=== PATIENT | male | born 1935 | race Caucasian/White ===

== ENCOUNTER 2017-12-30 15:09 | Inpatient (IN) | payer MEDICARE, OTHER ==
[2017-12-30] MEDS ORDERED: ASPIRIN 81 MG TABLET, CHEWABLE PO ONE ×2 (15:16→16:48)
--- NOTE | 2017-12-30 15:32 | ER Document Report ---
ED General - General Mode of Arrival: Medic Information source: Patient TRAVEL OUTSIDE OF THE [place] IN LAST 30 DAYS: No <RANDELL CHICAS - Last Filed: 12/30/17 23:29> <KEISHABRITTNEY Chen - Last Filed: 12/30/17 23:39> - General Stated Complaint: KNEE PAIN Time Seen by Provider: 12/30/17 15:24 Notes: Patient is an 82-year-old male with history of CHF, COPD, diabetes, and A. fib presents to the emergency department via EMS complaining of bilateral leg swelling onset this morning. Per EMS patient woke up this morning and had increased pain to his knees. Patient's associated symptoms include weakness dizziness and dyspnea. Patient also states that he has been falling a lot lately due to dizziness further stating he would always brace himself with his arms. Patient denies any chest pain, head injury or recent trauma. (RANDELL CHICAS) - Related Data Allergies/Adverse Reactions: rofecoxib [From Vioxx] Allergy (Severe, Verified 12/19/15 15:35) "put me in the hospital" Influenza Virus Vaccines [Influenza Virus Vaccine] Allergy (Unknown, Verified 11:07) lisinopril [Lisinopril] Adverse Reaction (Intermediate, Verified 12/19/15 15:35) muscle weakness simvastatin [From Zocor] Adverse Reaction (Intermediate, Verified 12/19/15 15:35 ) muscle weakness Past Medical History - General Information source: Patient - Social History Smoking Status: Unknown if Ever Smoked Family History: Reviewed & Not Pertinent - Past Medical History Cardiac Medical History: Reports: Hx Atrial Fibrillation - states chronic intermittent "all my life", denies anti-coag therapy, Hx Heart Attack - reports X 2 ??, in [place] 1959's/1969's, Hx Hypertension - meds x 6 years Pulmonary Medical History: Reports: Hx COPD, Hx Pneumonia - hospitalized as child, Hx Tuberculosis - +PPD, denies Rx, s, CXR shows previous granulomatous disease Renal/ Medical History: Reports: Hx Benign Prostatic Hyperplasia - nocturia x 2/night, urgency, "dribbling" GI Medical History: Reports: Hx Gastroesophageal Reflux Disease - meds x 25 years, Hx Ulcer - approx 25 years Musculoskeltal Medical History: Reports Hx Arthritis Psychiatric Medical History: Reports: Hx Depression - meds x 15 years - Immunizations Hx Pneumococcal Vaccination: 11/03/10 <JUAN FRANCISCORANDELL - Last Filed: 12/30/17 23:29> Review of Systems - Review of Systems Constitutional: No symptoms reported EENT: No symptoms reported Cardiovascular: See HPI, Dizziness Respiratory: No symptoms reported Gastrointestinal: No symptoms reported Genitourinary: No symptoms reported Male Genitourinary: No symptoms reported Musculoskeletal: See HPI Skin: No symptoms reported Hematologic/Lymphatic: No symptoms reported Neurological/Psychological: See HPI, Weakness -: Yes All other systems reviewed and negative <JUAN FRANCISCOLIUNATHAN - Last Filed: 12/30/17 23:29> Physical Exam <RANDELL CHICAS - Last Filed: 12/30/17 23:29> <KEISHABRITTNEY Gustavo - Last Filed: 12/30/17 23:39> - Vital signs Vitals: Pulse Ox 90 L 12/30/17 15:16 - Notes Notes: GENERAL: Alert, interacts well. No acute distress. HEAD: Normocephalic, atraumatic. EYES: Pupils equal, round, and reactive to light. Extraocular movements intact. ENT: Oral mucosa moist, tongue midline. NECK: Full range of motion. Supple. Trachea midline. LUNGS: Clear to auscultation bilaterally, no wheezes, rales, or rhonchi. No respiratory distress. HEART: Regular rate and rhythm. No murmurs, gallops, or rubs. ABDOMEN: Soft, non-tender. Non-distended. Bowel sounds present in all 4 quadrants. Old midline scar. EXTREMITIES: FROM BUE. Passive ROM BLE, with no pain. 2+ pitting edema BLE up to knees. NEUROLOGICAL: Alert and oriented x3. Normal speech. PSYCH: Normal affect, normal mood. SKIN: Warm, dry, normal turgor. Well healing abrasion on left lower extremity. Multiple SubQ skin tears on the proximal aspect of the left elbow and upper arm. Old skin tear located on the proximal aspect of the RUE. No signs of infection. No bruising on chest or abdomen. (RANDELL CHICAS) Course - Laboratory Result Diagrams: 12/30/17 15:41 12/30/17 15:41 - Consults Dr. Mckeon Time consulted: 17:18 - Dr. Mckeon accepts patient to Telemetry. <RANDELL CHICAS - Last Filed: 12/30/17 23:29> - Laboratory Result Diagrams: 12/30/17 15:41 12/30/17 15:41 <BRITTNEY VALDES - Last Filed: 12/30/17 23:39> - Vital Signs Vital signs: Temp Pulse Resp BP Pulse Ox 98.4 F 92 20 124/82 96 12/30/17 22:10 12/30/17 22:10 12/30/17 22:10 12/30/17 22:10 12/30/17 22:10 - Laboratory Laboratory results interpreted by me: 12/30/17 12/30/17 12/30/17 15:41 15:41 15:41 RBC 6.06 H Hgb 13.1 L MCV 72 L MCH 21.5 L MCHC 29.9 L RDW 31.5 H Plt Count 117 L Eosinophils % 8.9 H Carbon Dioxide 32 H Glucose 137 H Calcium 8.3 L Magnesium 1.1 L* Direct Bilirubin 0.6 H NT-Pro-B Natriuret Pep 13205 H Total Protein 5.9 L Discharge - Discharge Admitting Provider: Dr. Mckeon Unit Admitted: Telemetry <RANDELL CHICAS - Last Filed: 12/30/17 23:29> <BRITTNEY VALDES - Last Filed: 12/30/17 23:39> - Discharge Clinical Impression: Pitting edema, Weakness CHF (congestive heart failure) Qualifiers: Heart failure type: unspecified Heart failure chronicity: unspecified Qualified Code(s): I50.9 - Heart failure, unspecified Condition: Stable Disposition: ADMITTED INPATIENT Scribe Attestation: 12/30/17 23:39 I personally performed the services described documentation, reviewed and edited the documentation which was dictated to describe my presence, and it accurately records my words and actions. (BRITTNEY VALDES) Scribe Documentation - Scribe Written by Russ:: Russ Fatima, 12/30/2017 15:34 acting as scribe for :: Keisha <RANDELL CHICAS - Last Filed: 12/30/17 23:29>
--- NOTE | 2017-12-30 16:14 | RADIOLOGY REPORT (SQ) ---
EXAM DESCRIPTION: CHEST SINGLE VIEW COMPLETED DATE/TIME: 12/30/2017 3:54 pm REASON FOR STUDY: edema COMPARISON: None. EXAM PARAMETERS: NUMBER OF VIEWS: One view. TECHNIQUE: Single frontal radiographic view of the chest acquired. RADIATION DOSE: NA LIMITATIONS: None. FINDINGS: LUNGS AND PLEURA: Ill-defined opacity right base. Differential includes atelectasis, infi ltrate or possibly chronic change that cannot be excluded without previous chest x-rays. Few marking s left lower lung zone -probably vascular. MEDIASTINUM AND HILAR STRUCTURES: No masses. Contour normal. HEART AND VASCULAR STRUCTURES: Mild to moderate cardiomegaly. BONES: No acute findings. HARDWARE: Sternotomy wires. OTHER: No other significant finding. IMPRESSION: Increasing density at the right base. See above differential. No overt congestive hear t failure TECHNICAL DOCUMENTATION: JOB ID: [id number] [employer]- All Rights Reserved Reading location - IP/workstation name: [email or web address]
[2017-12-30 16:26] LABS: ALANINE AMINOTRANSFERASE 24 U/L (21-72); ALBUMIN 3.6 g/dL (3.5-5.0); ALKALINE PHOSPHATASE 47 U/L (38-126); ANION GAP 9 (5-19); ASPARTATE AMINO TRANSFERASE 20 U/L (17-59); BILIRUBIN,DIRECT 0.6 mg/dL (0.0-0.4); BILIRUBIN,TOTAL 0.8 mg/dL (0.2-1.3); BLOOD UREA NITROGEN 20 mg/dL (7-20); CALCIUM 8.3 mg/dL (8.4-10.2); CARBON DIOXIDE 32 mmol/L (22-30); CHLORIDE 103 mmol/L (98-107); GLUCOSE 137 mg/dL (75-110); POTASSIUM 4.3 mmol/L (3.6-5.0); SODIUM 143.5 mmol/L (137-145); TOTAL PROTEIN 5.9 g/dL (6.3-8.2)
[2017-12-30 16:35] LABS: ABSOLUTE BASOPHILS # (AUTO) 0.1 10^3/uL (0.0-0.2); ABSOLUTE EOSINOPHILS # (AUTO) 0.5 10^3/uL (0.0-0.6); ABSOLUTE MONOCYTES (AUTO) 0.4 10^3/uL (0.1-1.4); ABSOLUTE NEUT (AUTO) 3.1 10^3/uL (1.7-8.2); BASOPHILS % (AUTO) 1.2 % (0-2); EOSINOPHILS % (AUTO) 8.9 % (0-6); HEMATOCRIT 43.7 % (37.9-51.0); HEMOGLOBIN 13.1 g/dL (13.5-17.0); LYMPHOCYTES % (AUTO) 20.3 % (13-45); MEAN CORPUSCULAR HEMOGLOBIN 21.5 pg (27.0-33.4); MEAN CORPUSCULAR HGB CONC 29.9 g/dL (32.0-36.0); MEAN CORPUSCULAR VOLUME 72 fl (80-97); MONOCYTES % (AUTO) 7.6 % (3-13); PLATELET COUNT 117 10^3/uL (150-450); RED BLOOD COUNT 6.06 10^6/uL (4.35-5.55); RED CELL DISTRIBUTION WIDTH 31.5 % (11.5-14.0); TOTAL CELLS COUNTED % (AUTO) 100 %
[2017-12-30 16:44] LABS: TROPONIN I 0.053 ng/mL
[2017-12-30 16:45] LABS: PLATELET COMMENT DECREASED; PLATELET LARGE PRESENT
[2017-12-30 16:48] LABS: ANISOCYTOSIS 2+; OVALOCYTES 2+; TARGET CELLS SLIGHT; TEAR DROP CELLS SLIGHT
[2017-12-30 16:49] LABS: HYPOCHROMASIA SLIGHT
[2017-12-30] MEDS ORDERED: FUROSEMIDE INJ/PF 40 MG/4 ML SDV IV ONE (17:22)
--- NOTE | 2017-12-30 17:35 | RADIOLOGY REPORT (SQ) ---
EXAM DESCRIPTION: CT HEAD WITHOUT COMPLETED DATE/TIME: 12/30/2017 5:25 pm REASON FOR STUDY: frequent falls COMPARISON: None. TECHNIQUE: Axial images acquired through the brain without intravenous contrast. Images reviewed wi th bone, brain and subdural windows. Images stored on PACS. All CT scanners at this facility use dose modulation, iterative reconstruction, and/or weight based d osing when appropriate to reduce radiation dose to as low as reasonably achievable (ALARA). [facility]: Dose Right [facility]: CareDose [facility]: Dose Right [facility]: Teradose 4D [facility]: [employer] RADIATION DOSE: CT Rad equipment meets quality standard of care and radiation dose reduction techniq ues were employed. CTDIvol: 64.6 mGy. DLP: 1809 mGy-cm. mGy. LIMITATIONS: None. FINDINGS: VENTRICLES: Prominent ventricles secondary to involutional atrophy. CEREBRUM: No masses. No hemorrhage. No midline shift. No evidence for acute infarction. Normal gra y/white matter differentiation. No areas of low density in the white matter. CEREBELLUM: No masses. No hemorrhage. No alteration of density. No evidence for acute infarction. EXTRAAXIAL SPACES: No fluid collections. No masses. ORBITS AND GLOBE: No intra- or extraconal masses. Normal contour of globe without masses. CALVARIUM: No fracture. PARANASAL SINUSES: No fluid or mucosal thickening. SOFT TISSUES: Possible focal soft tissue swelling on the left near the vertex of the head. Recommend clinical correlation. OTHER: No other significant finding. IMPRESSION: No acute intracranial pathology. Possible focal soft tissue swelling left parietal efren on. EVIDENCE OF ACUTE STROKE: NO. COMMENT: Quality ID # [id number]: Final reports with documentation of one or more dose reduction techniques (e.g., Automated exposure control, adjustment of the mA and/or kV according to patient size, use of iterative reconstruction technique) TECHNICAL DOCUMENTATION: JOB ID: [id number] [employer]- All Rights Reserved Reading location - IP/workstation name: [email or web address]
--- NOTE | 2017-12-30 17:43 | RADIOLOGY REPORT (SQ) ---
EXAM DESCRIPTION: CT CHEST WITHOUT COMPLETED DATE/TIME: 12/30/2017 5:25 pm REASON FOR STUDY: eval infiltrate R lung base COMPARISON: None. TECHNIQUE: CT scan performed of the chest without intravenous contrast. Images reviewed with lung, soft tissue and bone windows. Reconstructed coronal and sagittal MPR images reviewed. All images st ored on PACS. All CT scanners at this facility use dose modulation, iterative reconstruction, and/or weight based d osing when appropriate to reduce radiation dose to as low as reasonably achievable (ALARA). [facility]: Dose Right [facility]: CareDose [facility]: Dose Right [facility]: Teradose 4D [facility]: [employer] RADIATION DOSE: CT Rad equipment meets quality standard of care and radiation dose reduction techniq ues were employed. CTDIvol: 14.4 mGy. DLP: 599 mGy-cm. mGy. LIMITATIONS: No technical limitations. FINDINGS: LUNGS AND PLEURA: Small left and moderate size right pleural effusion. Bronchiectatic roxana nge anteriorly right mid lung. HILAR AND MEDIASTINAL STRUCTURES: No identified masses or abnormal nodes. No obvious aneurysm. HEART AND VASCULAR STRUCTURES: Mild aneurysmal change ascending aorta. Transverse diameter 4.5 cm. Main pulmonary artery transverse diameter slightly increased at 42 mm. Biventricular dilatation. UPPER ABDOMEN: No significant findings. Limited exam. THYROID AND OTHER SOFT TISSUES: No masses. No adenopathy. BONES: No significant finding. HARDWARE: Status post CABG OTHER: No other significant findings. IMPRESSION: Bilateral pleural effusions -moderate on the right and small on the left. . Bronchiect atic change anteriorly right lung. Cardiomegaly. Mild aneurysmal change ascending aorta. TECHNICAL DOCUMENTATION: JOB ID: [id number] Quality ID # [id number]: Final reports with documentation of one or more dose reduction techniques (e.g., Au tomated exposure control, adjustment of the mA and/or kV according to patient size, use of iterative reconstruction technique) 2010 [employer]- All Rights Reserved Reading location - IP/workstation name: [email or web address]
[2017-12-30] MEDS: MAGNESIUM SULFATE/D5W 1 GM/100 ML RTUPB IV SCH ×3 (18:07→21:04)
[2017-12-30] MEDS ORDERED: METOPROLOL TARTRATE PF/INJ 5 MG/5 ML SDV IV ONE (18:58)
[2017-12-30] MEDS ORDERED: ACETAMINOPHEN 325 MG TABLET PO PRN (19:13)
[2017-12-30] MEDS ORDERED: CLOPIDOGREL BISULFATE 75 MG TABLET PO ONE (20:30)
--- NOTE | 2017-12-30 20:48 | EKG REPORT ---
SEVERITY:- ABNORMAL ECG - SINUS TACHYCARDIA WITH MULTIPLE PACS RBBB AND LAFB : Confirmed by: Shmuel Zuniga MD 30-Dec-2017 20:47:06
--- NOTE | 2017-12-30 20:48 | EKG REPORT ---
SEVERITY:- ABNORMAL ECG - ATRIAL FIBRILLATION RBBB AND LAFB ST ELEVATION, PROBABLE LATERAL INJURY , CLINICAL CORRELATION NEEDED. : Confirmed by: Shmuel Zuniga MD 30-Dec-2017 20:48:02
[2017-12-30] MEDS ORDERED: ENOXAPARIN SODIUM INJ 40 MG/0.4 ML DISP.SYRIN SUBCUT ONE (21:15)
[2017-12-30] MEDS ORDERED: METOPROLOL TARTRATE 50 MG TABLET PO SCH (22:00)
[2017-12-30] MEDS ORDERED: ENOXAPARIN SODIUM INJ 80 MG/0.8 ML DISP.SYRIN SUBCUT SCH (22:00)
[2017-12-30] MEDS: FUROSEMIDE INJ/PF 40 MG/4 ML SDV IV SCH (22:38)
[2017-12-30] MEDS: PREGABALIN 75 MG CAPSULE PO SCH (22:39)
[2017-12-30] MEDS: PANTOPRAZOLE SODIUM 40 MG VIAL IV SCH (22:39)
[2017-12-30] MEDS: ATORVASTATIN CALCIUM 80 MG TABLET PO SCH (22:40)
[2017-12-30] MEDS ORDERED: DEXTROSE 40% GEL 15 GM TUBE X 2 PO PRN (23:42)
[2017-12-30] MEDS ORDERED: DEXTROSE 50%-WATER SYRINGE 12.5 GM/25 ML DOSE IV PRN (23:42)
[2017-12-30] MEDS ORDERED: DEXTROSE 40% GEL 15 GM TUBE PO PRN (23:42)
[2017-12-30] MEDS ORDERED: DEXTROSE 50%-WATER SYRINGE 25 GM/50 ML DOSE IV PRN (23:42)
[2017-12-30] MEDS ORDERED: GLUCAGON,HUMAN RECOMB 1 MG INJ IM PRN (23:42)
[2017-12-31] MEDS: PREGABALIN 75 MG CAPSULE PO SCH ×3 (05:02→21:26)
[2017-12-31] MEDS: LANSOPRAZOLE 30 MG TAB.RAP.DR PO SCH (05:02)
--- NOTE | 2017-12-31 06:59 | PDOC H&P ---
History of Present Illness Admission Date/PCP: 12/30/17 17:41 ARACELY SALGUERO NP Patient complains of: Weakness multiple falls increasing shortness of breath History of Present Illness: NESHA PAGAN is a 82 year old male Patient of Dr. Salguero was brought to the ED because of increasing shortness of breath family stated that for the past 2 weeks the shortness of breath has been worse Patient is a chronic smoker not O2 dependent who has been diagnosed of CHF in the past Family noticed that he had increased orthopnea increased edema Patient also has been extremely unstable and sustained many falls Upon evaluation in the ED patient had a CAT scan of the chest that showed bilateral pleural effusion and CHF ; BNP was 10,000 ; CT of the brain was unremarkable; Serum magnesium was low at 1.1 On the monitor patient was in atrial fibrillation with rapid ventricular rate at 126/min patient was treated with Lasix; metoprolol; anticoagulation was initiated with Lovenox he was subsequently admitted under hospitalist service to IMCU unit with telemetry Past Medical History Cardiac Medical History: Reports: Atrial Fibrillation - states chronic intermittent "all my life", denies anti-coag therapy, Coronary Artery Disease, Myocardial Infarction - reports X 2 ??, in [place] 1959's/1969's, Hypertension - meds x 6 years Pulmonary Medical History: Reports: Chronic Obstructive Pulmonary Disease (COPD) , Pneumonia - hospitalized as child, Tuberculosis - +PPD, denies Rx, s, CXR shows previous granulomatous disease Endocrine Medical History: Reports: Diabetes Mellitus Type 2 GI Medical History: Reports: Gastroesophageal Reflux Disease - meds x 25 years Musculoskeltal Medical History: Reports: Arthritis Psychiatric Medical History: Reports: Depression - meds x 15 years Hematology: Denies: Anemia, Hemophilia, Sickle Cell Disease Social History Information Source: Patient Smoking Status: Former Smoker Frequency of Alcohol Use: None Hx Recreational Drug Use: No Hx Prescription Drug Abuse: No - Advance Directive Resuscitation Status: Full Code Surrogate healthcare decision maker:: daughter Jayne Family History Family History: Reviewed & Not Pertinent Parental Family History Reviewed: Yes Children Family History Reviewed: Yes Sibling(s) Family History Reviewed.: Yes Medication/Allergy Home Medications: Albuterol Sulfate [Proair Hfa Inhalation Aerosol 8.5 gm Mdi] 2 puff IH Q4HP PRN 12/30/17 Celecoxib [Celebrex 200 mg Capsule] 200 mg PO DAILY 12/30/17 Duloxetine HCl [Cymbalta] 30 mg PO DAILY 12/30/17 Ferrous Sulfate [Ferosul] 325 mg PO DAILY 12/30/17 Loteprednol Etabonate [Lotemax] 1 applic OU BID 12/30/17 Memantine HCl [Namenda] 5 mg PO DAILY 12/30/17 Metformin HCl [Glucophage 500 mg Tablet] 500 mg PO BIDACBS 12/30/17 Omeprazole 40 mg PO DAILY 12/30/17 Pregabalin [Lyrica] 150 mg PO Q8 12/30/17 Tobramycin/Dexamethasone [Tobramycin-Dexameth Ophth Susp] 1 drop OU BID Allergies/Adverse Reactions: rofecoxib [From Vioxx] Allergy (Severe, Verified 12/19/15 15:35) "put me in the hospital" Influenza Virus Vaccines [Influenza Virus Vaccine] Allergy (Unknown, Verified 11:07) lisinopril [Lisinopril] Adverse Reaction (Intermediate, Verified 12/19/15 15:35) muscle weakness simvastatin [From Zocor] Adverse Reaction (Intermediate, Verified 12/19/15 15:35 ) muscle weakness Review of Systems Constitutional: ABSENT: chills, fever(s), headache(s), weight gain, weight loss Cardiovascular: PRESENT: dyspnea on exertion, edema, orthropnea, palpitations. ABSENT: chest pain Respiratory: PRESENT: as per HPI, cough, dyspnea Gastrointestinal: ABSENT: abdominal pain, constipation, diarrhea, hematemesis, hematochezia, nausea, vomiting Genitourinary: ABSENT: dysuria, hematuria Neurological: ABSENT: abnormal gait, abnormal speech, confusion, dizziness, focal weakness, syncope Psychiatric: ABSENT: anxiety, depression, homidical ideation, suicidal ideation Endocrine: ABSENT: cold intolerance, heat intolerance, polydipsia, polyuria Hematologic/Lymphatic: ABSENT: easy bleeding, easy bruising Physical Exam Vital Signs: Temp Pulse Resp BP Pulse Ox 97.8 F 65 20 113/87 H 97 12/31/17 04:17 12/31/17 04:17 12/31/17 04:17 12/31/17 04:17 12/31/17 04:17 Intake & Output 02/27/18 02/28/18 03/01/18 00:59 00:59 00:59 Intake Total 200 100 Balance 200 100 Weight 75.1 kg 77.2 kg General appearance: PRESENT: cooperative, mild distress, well-developed Head exam: PRESENT: atraumatic, normocephalic Eye exam: PRESENT: conjunctiva pink, EOMI, PERRLA. ABSENT: scleral icterus Neck exam: ABSENT: carotid bruit, JVD, lymphadenopathy, thyromegaly Respiratory exam: PRESENT: decreased breath sounds, rales - bases, wheezes. ABSENT: accessory muscle use Cardiovascular exam: PRESENT: tachycardia. ABSENT: diastolic murmur, rubs Pulses: PRESENT: normal dorsalis pedis pul Vascular exam: PRESENT: normal capillary refill GI/Abdominal exam: PRESENT: normal bowel sounds, soft. ABSENT: distended, guarding, mass, organolmegaly, rebound, tenderness Extremities exam: PRESENT: +2 edema Musculoskeletal exam: PRESENT: normal inspection. ABSENT: deformity, tenderness Neurological exam: PRESENT: alert, awake, oriented to person, oriented to place , oriented to time, oriented to situation, CN II-XII grossly intact. ABSENT: motor sensory deficit Psychiatric exam: PRESENT: appropriate affect Skin exam: PRESENT: dry, intact, warm. ABSENT: cyanosis, rash Results Laboratory Results: 12/30/17 12/31/17 19:25 01:23 Troponin I 0.048 0.057 EKG Comments: - - * SINUS TACHYCARDIA WITH MULTIPLE PACS . RBBB AND LAFB Impressions: Chest X-Ray 12/30/17 15:16 IMPRESSION: Increasing density at the right base. See above differential. No overt congestive heart failure Chest CT 12/30/17 16:49 IMPRESSION: Bilateral pleural effusions -moderate on the right and small on the left. . Bronchiectatic change anteriorly right lung. Cardiomegaly. Mild aneurysmal change ascending aorta. Head CT 12/30/17 16:49 IMPRESSION: No acute intracranial pathology. Possible focal soft tissue swelling left parietal region. EVIDENCE OF ACUTE STROKE: NO. Assessment & Plan - Diagnosis (1) Acute on chronic congestive heart failure Qualifiers: Heart failure type: unspecified Qualified Code(s): I50.9 - Heart failure, unspecified Is this a current diagnosis for this admission?: Yes Plan: EF is undocumented ; patient has been treated in the past in Counts Include [facility] we will schedule the patient for echocardiogram Diurese the patient with Lasix Patient has an abnormal EKG with ST-T changes; troponins are in the intermediate range and there is no chest pain the EKG changes may be associated with hypomagnesemia We will continue home meds It is noted that patient is allergic to lisinopril ARB meds on the list of his medication and we are cautious using them cardiology consult will be obtained (2) Falls Is this a current diagnosis for this admission?: Yes Plan: CT head was negative ; we will obtain a PT evaluation (3) Unsteady gait Is this a current diagnosis for this admission?: Yes (4) Diabetes Qualifiers: Diabetes mellitus type: type 2 Diabetes mellitus complication status: with unspecified complications Diabetes mellitus termite inspector insulin use: without termite inspector use Qualified Code(s): E11.8 - Type 2 diabetes mellitus with unspecified complications Is this a current diagnosis for this admission?: Yes Plan: Hold metformin for now obtain hemoglobin A1c Accu-Cheks before meals at bedtime and lispro coverage (5) CAD (coronary artery disease) Qualifiers: Coronary Disease-Associated Artery/Lesion type: unspecified vessel or lesion type [place] vs. transplanted heart: andreafski heart Associated angina: angina presence unspecified Qualified Code(s): I25.10 - Atherosclerotic heart disease of [place]reafski coronary artery without angina pectoris Is this a current diagnosis for this admission?: Yes (6) Hypomagnesemia Is this a current diagnosis for this admission?: Yes Plan: Replace (7) Atrial fibrillation Qualifiers: Atrial fibrillation type: unspecified Qualified Code(s): I48.91 - Unspecified atrial fibrillation Is this a current diagnosis for this admission?: Yes Plan: rhythm is unclear at times Most times he is in sinus tachycardia with multiple APCs At other times the rhythm is suggestive of A. fib We will initiate anticoagulation with Lovenox at 1 mg/kg subcu every 12 Cardiology consult to follow Noted that patient has not been anticoagulated in the past He may not be a candidate for chronic anticoagulation as he is unsteady and has sustained falls recently PT evaluation in a.m. - Time Time Spent with patient: Patient was admitted to [facility] with telemetry as an inpatient - Inpatient Certification Based on my medical assessment, after consideration of the patient's comorbidities, presenting symptoms, or acuity I expect that the services needed warrant INPATIENT care.: Yes I certify that my determination is in accordance with my understanding of Medicare's requirements for reasonable and necessary INPATIENT services [42 CFR 412.3e].: Yes Medical Necessity: Significant Comorbidiites Make Outpatient Treatment Too Risky , Need Close Monitoring Due to Risk of Patient Decompensation, Need For Continuous Telemetry Monitoring, Risk of Complication if Not Cared For in Hospital
[2017-12-31 08:02] LABS: HEMATOCRIT 46.8 % (37.9-51.0); HEMOGLOBIN 13.7 g/dL (13.5-17.0); MEAN CORPUSCULAR HEMOGLOBIN 21.3 pg (27.0-33.4); MEAN CORPUSCULAR HGB CONC 29.3 g/dL (32.0-36.0); MEAN CORPUSCULAR VOLUME 73 fl (80-97); PLATELET COUNT 139 10^3/uL (150-450); RED BLOOD COUNT 6.45 10^6/uL (4.35-5.55); RED CELL DISTRIBUTION WIDTH 31.5 % (11.5-14.0); WHITE BLOOD COUNT 5.9 10^3/uL (4.0-10.5)
[2017-12-31 08:24] LABS: ANION GAP 12 (5-19); BLOOD UREA NITROGEN 21 mg/dL (7-20); CARBON DIOXIDE 31 mmol/L (22-30); CHLORIDE 100 mmol/L (98-107); CHOLESTEROL 125.22 mg/dL (0-200); GLUCOSE 124 mg/dL (75-110); SODIUM 143.1 mmol/L (137-145); TRIGLYCERIDES 91 mg/dL (<150)
[2017-12-31 08:35] LABS: DIRECT LDL 62 mg/dL (<100)
[2017-12-31 08:40] LABS: FREE T3 2.02 pg/mL (2.77-5.27)
[2017-12-31 08:54] LABS: THYROID STIMULATING HORMONE 2.37 uIU/mL (0.47-4.68)
--- NOTE | 2017-12-31 08:58 | PDOC PROGRESS REPORT ---
Subjective Progress Note for:: 12/31/17 Subjective:: Patient is doing a lot better today; he is laying flat extremely comfortable in no acute distress Is alert and awake He has no chest pain ; on the monitor he is in atrial fibrillation at a rate of 70-80 During the night she had bouts of tachycardia which were consistent with A. fib and rapid ventricular rate At times he had bigeminy He is totally asymptomatic Reason For Visit: ACUTE/CHRONIC CHF, HYPOMAGNESEMIA Physical Exam Vital Signs: Temp Pulse Resp BP Pulse Ox 97.7 F 44 L 18 134/77 H 95 12/31/17 07:35 12/31/17 07:35 12/31/17 07:35 12/31/17 07:35 12/31/17 07:35 Intake & Output 12/30/17 12/31/17 01/01/18 00:59 00:59 00:59 Intake Total 200 100 Balance 200 100 Weight 75.1 kg 77.2 kg General appearance: PRESENT: cooperative, mild distress, well-developed Head exam: PRESENT: atraumatic, normocephalic Eye exam: PRESENT: conjunctiva pink, EOMI, PERRLA. ABSENT: scleral icterus Neck exam: ABSENT: carotid bruit, JVD, lymphadenopathy, thyromegaly Respiratory exam: PRESENT: decreased breath sounds, rales - bases, wheezes. ABSENT: accessory muscle use Cardiovascular exam: PRESENT: tachycardia. ABSENT: diastolic murmur, rubs Pulses: PRESENT: normal dorsalis pedis pul Vascular exam: PRESENT: normal capillary refill GI/Abdominal exam: PRESENT: normal bowel sounds, soft. ABSENT: distended, guarding, mass, organolmegaly, rebound, tenderness Extremities exam: PRESENT: +2 edema Musculoskeletal exam: PRESENT: normal inspection. ABSENT: deformity, tenderness Neurological exam: PRESENT: alert, awake, oriented to person, oriented to place , oriented to time, oriented to situation, CN II-XII grossly intact. ABSENT: motor sensory deficit Psychiatric exam: PRESENT: appropriate affect Skin exam: PRESENT: dry, intact, warm. ABSENT: cyanosis, rash Results Laboratory Results: 12/31/17 07:23 12/31/17 07:23 Sodium 143.1 Potassium 5.0 Chloride 100 Carbon Dioxide 31 H Anion Gap 12 BUN 21 H Creatinine 0.87 Est GFR ( Amer) > 60 Est GFR (Non-Af Amer) > 60 Glucose 124 H Calcium 9.0 Magnesium 1.8 Triglycerides 91 Cholesterol 125.22 LDL Cholesterol Direct 62 VLDL Cholesterol 18.0 HDL Cholesterol 51 12/30/17 12/31/17 12/31/17 19:25 01:23 07:20 Troponin I 0.048 0.057 0.063 Impressions: Chest X-Ray 12/30/17 15:16 IMPRESSION: Increasing density at the right base. See above differential. No overt congestive heart failure Chest CT 12/30/17 16:49 IMPRESSION: Bilateral pleural effusions -moderate on the right and small on the left. . Bronchiectatic change anteriorly right lung. Cardiomegaly. Mild aneurysmal change ascending aorta. Head CT 12/30/17 16:49 IMPRESSION: No acute intracranial pathology. Possible focal soft tissue swelling left parietal region. EVIDENCE OF ACUTE STROKE: NO. Assessment & Plan - Diagnosis (1) Acute on chronic congestive heart failure Qualifiers: Heart failure type: unspecified Qualified Code(s): I50.9 - Heart failure, unspecified Is this a current diagnosis for this admission?: Yes Plan: Workup in progress Patient had cardiac enzymes in intermediate range 0.05-0.06 There is no evidence of an acute coronary syndrome Echocardiogram pending Case was discussed with Dr. Cummins will consult to optimize medical management (2) Falls Qualifiers: Encounter type: initial encounter Qualified Code(s): W19.XXXA - Unspecified fall, initial encounter Is this a current diagnosis for this admission?: Yes Plan: PT consult pending (3) Unsteady gait Is this a current diagnosis for this admission?: Yes Plan: As above (4) Diabetes Qualifiers: Diabetes mellitus type: type 2 Diabetes mellitus complication status: with unspecified complications Diabetes mellitus intermediate insulin use: without terminal makeup operator use Qualified Code(s): E11.8 - Type 2 diabetes mellitus with unspecified complications Is this a current diagnosis for this admission?: Yes (5) CAD (coronary artery disease) Qualifiers: Coronary Disease-Associated Artery/Lesion type: unspecified vessel or lesion type [place] vs. transplanted heart: [place] heart Associated angina: angina presence unspecified Qualified Code(s): I25.10 - Atherosclerotic heart disease of [place] coronary artery without angina pectoris Is this a current diagnosis for this admission?: Yes (6) Hypomagnesemia Is this a current diagnosis for this admission?: Yes (7) Atrial fibrillation Qualifiers: Atrial fibrillation type: unspecified Qualified Code(s): I48.91 - Unspecified atrial fibrillation Is this a current diagnosis for this admission?: Yes Plan: Patient has not been anticoagulated in the past Vascular chads score is at least 5 Patient is certainly a candidate for chronic anticoagulation but We are concerned about the unsteady gait and prior falls Patient is also on plavix which increases his risk of bleeding PT evaluation is pending In the meantime we have initiated Lovenox at 1 mg/kg every 12 - Time Time Spent with patient: 25-34 minutes
[2017-12-31] MEDS: FERROUS SULFATE 325 MG TABLET PO SCH (09:45)
[2017-12-31] MEDS: METOPROLOL SUCCINATE 25 MG TAB.SR.24H PO SCH (09:45)
[2017-12-31] MEDS: MEMANTINE HCL 10 MG TABLET PO SCH (09:45)
[2017-12-31] MEDS: FUROSEMIDE INJ/PF 40 MG/4 ML SDV IV SCH ×2 (09:46→21:26)
[2017-12-31] MEDS: DULOXETINE HCL 30 MG CAPSULE.DR PO SCH (09:46)
[2017-12-31] MEDS: TOBRAMYCIN SULFATE/DEXAMETH OPH SUSP 2.5 ML OU SCH ×2 (09:46→18:07)
[2017-12-31] MEDS: PANTOPRAZOLE SODIUM 40 MG VIAL IV SCH ×2 (09:47→21:26)
[2017-12-31] MEDS ORDERED: (PENDING PHARMACY ID) (Memantine Hcl [Namenda] 5 MG) PO SCH (10:00)
[2017-12-31] MEDS ORDERED: CLOPIDOGREL BISULFATE 75 MG TABLET PO SCH (10:00)
[2017-12-31] MEDS ORDERED: ENOXAPARIN SODIUM INJ 80 MG/0.8 ML DISP.SYRIN SUBCUT SCH (10:00)
[2017-12-31] MEDS ORDERED: ENOXAPARIN SODIUM INJ 40 MG/0.4 ML DISP.SYRIN SUBCUT SCH ×2 (10:00)
[2017-12-31] MEDS ORDERED: LOTEPREDNOL ETABONATE OU SCH (10:00)
--- NOTE | 2017-12-31 10:45 | PDOC CONSULTATION ---
Consultation Consult Date: 12/31/17 Attending physician:: LILLIE LAZAR Consult reason:: Shortness of breath and pedal edema History of Present Illness Admission Date/PCP: 12/30/17 17:41 ARACELY SALGUERO NP Patient complains of: Shortness of breath and pedal edema History of Present Illness: NESHA PAGAN is a 82 year old male, Patient of Dr. Salguero was brought to the ED because of increasing shortness of breath family stated that for the past 2 weeks the shortness of breath has been worse. Patient is a chronic smoker not O2 dependent who has been diagnosed of CHF in the past. Family noticed that he had increased orthopnea, increased edema. Patient also has been extremely unstable and sustained many falls Upon evaluation in the ED patient had a CAT scan of the chest that showed bilateral pleural effusion and CHF. BNP was 10,000 ; CT of the brain was unremarkable; Serum magnesium was low at 1.1 On the monitor patient was in atrial fibrillation with rapid ventricular rate at 126/min Patient was treated with Lasix; metoprolol; anticoagulation was initiated with Lovenox he was subsequently admitted under hospitalist service to IMCU unit with telemetry. Above history obtained by Dr. Lazar was reviewed, confirmed with the patient and supplemented. Patient is a poor historian. On repeated questioning patient denied any chest pain. He denied any syncope or near syncope. He denied any bleeding complications. Past Medical History Cardiac Medical History: Reports: Atrial Fibrillation - states chronic intermittent "all my life", denies anti-coag therapy, Coronary Artery Disease, Myocardial Infarction - reports X 2 ??, in [place] 1959's/1969's, Hypertension - meds x 6 years Pulmonary Medical History: Reports: Chronic Obstructive Pulmonary Disease (COPD) , Pneumonia - hospitalized as child, Tuberculosis - +PPD, denies Rx, s, CXR shows previous granulomatous disease Endocrine Medical History: Reports: Diabetes Mellitus Type 2 GI Medical History: Reports: Gastroesophageal Reflux Disease - meds x 25 years Musculoskeltal Medical History: Reports: Arthritis Psychiatric Medical History: Reports: Depression - meds x 15 years Hematology: Denies: Anemia, Hemophilia, Sickle Cell Disease Social History Information Source: Patient Smoking Status: Former Smoker Frequency of Alcohol Use: None Hx Recreational Drug Use: No Hx Prescription Drug Abuse: No - Advance Directive Resuscitation Status: Full Code Surrogate healthcare decision maker:: Not identified by the patient Family History Family History: Reviewed & Not Pertinent Parental Family History Reviewed: No Children Family History Reviewed: No Sibling(s) Family History Reviewed.: No - Family history not contributory at patient's age. Also because of dementia, family history could not be confirmed. Medication/Allergy Home Medications: Albuterol Sulfate [Proair Hfa Inhalation Aerosol 8.5 gm Mdi] 2 puff IH Q4HP PRN 12/30/17 Celecoxib [Celebrex 200 mg Capsule] 200 mg PO DAILY 12/30/17 Duloxetine HCl [Cymbalta] 30 mg PO DAILY 12/30/17 Ferrous Sulfate [Ferosul] 325 mg PO DAILY 12/30/17 Loteprednol Etabonate [Lotemax] 1 applic OU BID 12/30/17 Memantine HCl [Namenda] 5 mg PO DAILY 12/30/17 Metformin HCl [Glucophage 500 mg Tablet] 500 mg PO BIDACBS 12/30/17 Omeprazole 40 mg PO DAILY 12/30/17 Pregabalin [Lyrica] 150 mg PO Q8 12/30/17 Tobramycin/Dexamethasone [Tobramycin-Dexameth Ophth Susp] 1 drop OU BID Allergies/Adverse Reactions: rofecoxib [From Vioxx] Allergy (Severe, Verified 12/19/15 15:35) "put me in the hospital" Influenza Virus Vaccines [Influenza Virus Vaccine] Allergy (Unknown, Verified 11:07) lisinopril [Lisinopril] Adverse Reaction (Intermediate, Verified 12/19/15 15:35) muscle weakness simvastatin [From Zocor] Adverse Reaction (Intermediate, Verified 12/19/15 15:35 ) muscle weakness Review of Systems ROS unobtainable: Due to mental status Physical Exam Vital Signs: Temp Pulse Resp BP Pulse Ox 97.7 F 44 L 18 134/77 H 95 12/31/17 07:35 12/31/17 07:35 12/31/17 07:35 12/31/17 07:35 12/31/17 07:35 Intake & Output 12/30/17 12/31/17 01/01/18 06:59 06:59 06:59 Intake Total 300 Balance 300 Weight 77.2 kg Exam: GENERAL: well-nourished and in no acute distress. Patient is alert but is noted to be mildly confused. Patient has dementia. HEAD: Atraumatic, normocephalic. EYES: Pupils equal round and reactive to light, extraocular movements intact, sclera anicteric, conjunctiva are normal. ENT: TMs normal, nares patent, oropharynx clear without exudates. Moist mucous membranes. No oral ulcerations or bleeding gums noted NECK: supple without lymphadenopathy or JVD. Trachea is central. No cervical or axillary lymphadenopathy noted. Carotids are 2+ LUNGS: Breath sounds bibasilar fine crackles at bases. No significant dullness noted. CHEST: Palpation of chest wall shows no significant chest wall tenderness. 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 ABDOMEN: Soft, no significant tenderness appreciated, normoactive bowel sounds. No guarding, no rebound. No rigidity noted . No masses appreciated. EXTREMITIES: Pedal pulses are 1-2+, no calf tenderness noted, Trace + pedal edema noted. No clubbing or cyanosis. NEUROLOGICAL: Patient is alert, on quick exam no focal neurological deficit noted. PSYCH: Patient's mood felt to be normal. But judgment could not be checked because of some underlying confusion. SKIN: No significant ecchymosis, rash, ulcerations or signs of pruritus noted. MUSCULOSKELETAL EXAM: No significant joint swelling noted. Results Laboratory Results: 12/31/17 07:23 12/31/17 07:23 12/31/17 12/31/17 12/31/17 07:23 07:23 07:23 WBC 5.9 RBC 6.45 H Hgb 13.7 Hct 46.8 MCV 73 L MCH 21.3 L MCHC 29.3 L RDW 31.5 H Plt Count 139 L Sodium 143.1 Potassium 5.0 Chloride 100 Carbon Dioxide 31 H Anion Gap 12 BUN 21 H Creatinine 0.87 Est GFR ( Amer) > 60 Est GFR (Non-Af Amer) > 60 Glucose 124 H Calcium 9.0 Magnesium 1.8 Triglycerides 91 Cholesterol 125.22 LDL Cholesterol Direct 62 VLDL Cholesterol 18.0 HDL Cholesterol 51 TSH 2.37 Free T3 pg/mL 2.02 L 12/30/17 12/31/17 12/31/17 19:25 01:23 07:20 Troponin I 0.048 0.057 0.063 EKG Comments: Atrial fibrillation, left axis deviation, right bundle branch block pattern. Minor nonspecific ST-T changes noted. Impressions: Chest X-Ray 12/30/17 15:16 IMPRESSION: Increasing density at the right base. See above differential. No overt congestive heart failure Chest CT 12/30/17 16:49 IMPRESSION: Bilateral pleural effusions -moderate on the right and small on the left. . Bronchiectatic change anteriorly right lung. Cardiomegaly. Mild aneurysmal change ascending aorta. Head CT 12/30/17 16:49 IMPRESSION: No acute intracranial pathology. Possible focal soft tissue swelling left parietal region. EVIDENCE OF ACUTE STROKE: NO. Assessment & Plan - Diagnosis (1) Acute on chronic congestive heart failure Qualifiers: Heart failure type: combined systolic and diastolic Qualified Code(s): I50.43 - Acute on chronic combined systolic (congestive) and diastolic ( congestive) heart failure Is this a current diagnosis for this admission?: Yes (2) Atrial fibrillation Qualifiers: Atrial fibrillation type: unspecified Qualified Code(s): I48.91 - Unspecified atrial fibrillation Is this a current diagnosis for this admission?: Yes (3) CAD (coronary artery disease) Qualifiers: Coronary Disease-Associated Artery/Lesion type: [place] artery [place] vs. transplanted heart: [place] heart Associated angina: angina presence unspecified Qualified Code(s): I25.10 - Atherosclerotic heart disease of [place] coronary artery without angina pectoris Is this a current diagnosis for this admission?: Yes (4) CHF (congestive heart failure) Qualifiers: Heart failure type: unspecified Heart failure chronicity: unspecified Qualified Code(s): I50.9 - Heart failure, unspecified Is this a current diagnosis for this admission?: Yes (5) Diabetes Qualifiers: Diabetes mellitus type: type 2 Diabetes mellitus complication status: with unspecified complications Diabetes mellitus mcfp insulin use: without mcfp use Qualified Code(s): E11.8 - Type 2 diabetes mellitus with unspecified complications Is this a current diagnosis for this admission?: Yes (6) Falls Qualifiers: Encounter type: subsequent encounter Qualified Code(s): W19.XXXD - Unspecified fall, subsequent encounter Is this a current diagnosis for this admission?: Yes (7) Hypomagnesemia Is this a current diagnosis for this admission?: Yes (9) Unsteady gait Is this a current diagnosis for this admission?: Yes (10) COPD (chronic obstructive pulmonary disease) Qualifiers: COPD type: COPD with acute exacerbation Qualified Code(s): J44.1 - Chronic obstructive pulmonary disease with (acute) exacerbation Is this a current diagnosis for this admission?: Yes - Notes Notes: Acute on chronic congestive heart failure: Continue diuretic therapy. 2D echo is pending. Further adjustment of the medication will be made after review of 2D echocardiogram. Atrial fibrillation: Recommend chronic anticoagulation given high chads score. Patient does have history of fall, patient will also benefit from physical therapy assessment and advice regarding prevention of fall by physical therapist. Coronary artery disease: Patient status post coronary artery bypass graft surgery. At this time in the absence of chest pain and other significant comorbid diagnosis and also underlying dementia, do not feel patient would be a candidate for invasive workup in the absence of significant anginal symptoms. Diabetes: Recommend good control of diabetes but avoid any hyper or hypoglycemia. COPD: Continue bronchodilator and antibiotic treatment as needed. Will leave management to hospitalist. History of fall: Recommend physical therapy. Pitting edema: Part of CHF. Patient could have associated venous insufficiency. Unsteady gait: Recommend physical therapy. - Time Time Spent: 30 to 50 Minutes - CODE STATUS was discussed, patient remains full code. Surrogate decision-maker not yet identified. Multiple medical problems were addressed. More than 50% of the time spent coordinating care, discussing management plans with involved caregivers. Management plans discussed with involved personnels. Medical decision making was of moderate to high complexity , patient's has multiple comorbidities. Medications reviewed and adjusted accordingly: Yes
--- NOTE | 2017-12-31 12:42 | XCELERA REPORT ---
[address] [address] Transthoracic Echocardiogram Report Name: NESHA PAGAN Age: 82 yrs Gender: Male : 1935 Patient Status: Inpatient Patient Location: [address] [place] [address] Study Date: 12/31/2017 11:00 AM Height: 68 in Weight: 165 lb BSA: 1.9 m2 Procedure: A complete two-dimensional transthoracic echocardiogram was performed (2D, M-mode, spectral and color flow Doppler). The study was technically difficult with many images being suboptimal in quality. Reason For Study: chf Ordering Physician: LILLIE LAZAR Performed By: Silvia Paredes Interpretation Summary Left ventricular systolic function is moderately reduced. The Ejection Fraction estimate is 35-40% There is mild concentric left ventricular hypertrophy. The left ventricle is grossly normal size. Doppler measurements suggest pseudonormalized left ventricular relaxation, which is associated with grade II/IV or mild to moderate diastolic dysfunction Regional wall motion abnormalities cannot be excluded due to limited visualization. The right ventricular systolic function is moderately reduced. The right ventricle is moderately dilated. The right atrium is moderately dilated. The left atrium is mildly dilated. There is a mild amount of mitral regurgitation There is no mitral valve stenosis. There is no aortic valve stenosis There is a mild amount of aortic regurgitation There is a moderate amount of tricuspid regurgitation There is moderate pulmonary hypertension by echo Right ventricular systolic pressure is estimated to be elevated at 50- 60mmHg. Minimal pericardial effusion. MMode/2D Measurements & Calculations RVDd: 4.1 cm LVIDd: 4.9 cm FS: 26.0 % Ao root diam: 3.3 cm IVSd: 1.2 cm LVIDs: 3.6 cm EDV(Teich): 111.3 ml LVPWd: 1.2 cm ESV(Teich): 54.6 ml Ao root area: 8.5 cm2 EF(Teich): 51.0 % LA dimension: 4.0 cm Doppler Measurements & Calculations MV E max harris: MV P1/2t max harris: Ao V2 max: LV V1 max P.5 cm/sec 74.0 cm/sec 137.3 cm/sec 2.6 mmHg MV A max harris: MV P1/2t: 58.7 msec Ao max PG: LV V1 max: 64.2 cm/sec 7.5 mmHg 80.9 cm/sec MV E/A: 1.2 MVA(P1/2t): 3.7 cm2 MV dec slope: 369.6 cm/sec2 PA V2 max: PI end-d harris: TR max harris: 61.2 cm/sec 145.2 cm/sec 317.6 cm/sec PA max PG: TR max P.5 mmHg 40.4 mmHg Left Ventricle The left ventricle is grossly normal size. There is mild concentric left ventricular hypertrophy. Left ventricular systolic function is moderately reduced. The Ejection Fraction estimate is 35-40%. Doppler measurements suggest pseudonormalized left ventricular relaxation, which is associated with grade II/IV or mild to moderate diastolic dysfunction. Regional wall motion abnormalities cannot be excluded due to limited visualization. Right Ventricle The right ventricle is moderately dilated. The right ventricular systolic function is moderately reduced. Atria The right atrium is moderately dilated. The left atrium is mildly dilated. Interarterial septum not well visualized and not well dopplered. Cannot comment on ASD/PFO presence. Mitral Valve There is moderate mitral leaflet calcification. There is moderate mitral annular calcification. There is no mitral valve stenosis. There is a mild amount of mitral regurgitation. Aortic Valve The aortic valve is moderately calcified. There is no aortic valve stenosis. There is a mild amount of aortic regurgitation. Tricuspid Valve The tricuspid valve is not well visualized secondary to technical limitations. There is no tricuspid stenosis. There is a moderate amount of tricuspid regurgitation. There is moderate pulmonary hypertension by echo. Right ventricular systolic pressure is estimated to be elevated at 50- 60mmHg. Pulmonic Valve The pulmonic valve is not well visualized. There is a mild amount of pulmonic regurgitation. Great Vessels The aortic root is not well visualized but is probably normal size. The inferior vena cava appeared normal and decreased < 50% with respiration (RAP 10-15 mmHg). Effusions Minimal pericardial effusion. : LILLIE LAZAR > [employer]ins
[2017-12-31] MEDS: INSULIN LISPRO 100 UNIT/ML 3 ML VIAL SUBCUT PRN (18:06)
[2017-12-31] MEDS: APIXABAN 5 MG TABLET PO SCH (18:29)
[2017-12-31] MEDS: ATORVASTATIN CALCIUM 80 MG TABLET PO SCH (21:25)
[2017-12-31 23:24] LABS: APPEARANCE,URINE SLIGHTLY-CLOUDY; BILIRUBIN,URINE NEGATIVE (NEGATIVE); COLOR,URINE YELLOW; GLUCOSE, URINE NEGATIVE (NEGATIVE); KETONES,URINE NEGATIVE (NEGATIVE); LEUKOCYTE ESTERASE,URINE SMALL (NEGATIVE); NITRITE,URINE NEGATIVE (NEGATIVE); PROTEIN,URINE NEGATIVE (NEGATIVE)
[2018-01-01] MEDS: LANSOPRAZOLE 30 MG TAB.RAP.DR PO SCH (05:23)
[2018-01-01] MEDS: PREGABALIN 75 MG CAPSULE PO SCH ×3 (05:23→21:24)
[2018-01-01] MEDS: DULOXETINE HCL 30 MG CAPSULE.DR PO SCH (10:07)
[2018-01-01] MEDS: MEMANTINE HCL 10 MG TABLET PO SCH (10:07)
[2018-01-01] MEDS: FERROUS SULFATE 325 MG TABLET PO SCH (10:08)
[2018-01-01] MEDS: METOPROLOL SUCCINATE 25 MG TAB.SR.24H PO SCH (10:08)
[2018-01-01] MEDS: APIXABAN 5 MG TABLET PO SCH ×2 (10:10→21:24)
[2018-01-01] MEDS: FUROSEMIDE INJ/PF 40 MG/4 ML SDV IV SCH ×2 (10:10→21:24)
[2018-01-01] MEDS: PANTOPRAZOLE SODIUM 40 MG VIAL IV SCH (10:10)
[2018-01-01] MEDS: TOBRAMYCIN SULFATE/DEXAMETH OPH SUSP 2.5 ML OU SCH ×2 (10:11→21:24)
--- NOTE | 2018-01-01 10:58 | PDOC PROGRESS REPORT ---
Subjective Progress Note for:: 01/01/18 Subjective:: Still feels very weak. No recurrent falls at the hospital. Denies chest pain, palpitations, no shortness of breath. No fever or chills, no cough or hemoptysis. Reason For Visit: ACUTE/CHRONIC CHF, HYPOMAGNESEMIA Physical Exam Vital Signs: Temp Pulse Resp BP Pulse Ox 97.4 F 83 20 138/83 H 96 01/01/18 08:02 01/01/18 08:02 01/01/18 08:02 01/01/18 08:02 01/01/18 08:02 Intake & Output 12/31/17 01/01/18 01/02/18 06:59 06:59 06:59 Intake Total 300 1080 Balance 300 1080 Weight 77.2 kg 73.3 kg GEN: Elderly male, NAD, well-developed, cooperative CV: RRR, NL S1S2, 2/6 CHUCK aortic area, 1/6 farmer systolic murmur mitral area LUNGS: Decreased breath sounds with fine crackles bases bilaterally ABDOMEN Soft, NT, +BS EXTERMITIES: 1+ pedal edema, no clubbing or cyanosis NEURO: Alert, oriented Results Laboratory Results: 12/31/17 07:23 12/31/17 07:23 12/31/17 22:35 Urine Color YELLOW Urine Appearance SLIGHTLY-CLOUDY Urine pH 5.0 Ur Specific [place] 1.010 Urine Protein NEGATIVE Urine Glucose (UA) NEGATIVE Urine Ketones NEGATIVE Urine Blood MODERATE H Urine Nitrite NEGATIVE Ur Leukocyte Esterase SMALL H Urine WBC (Auto) 3 Urine RBC (Auto) 104 12/30/17 12/31/17 12/31/17 19:25 01:23 07:20 Troponin I 0.048 0.057 0.063 12/31/17 07:23 Sodium 143.1 Potassium 5.0 Chloride 100 Carbon Dioxide 31 H Anion Gap 12 BUN 21 H Creatinine 0.87 Est GFR ( Amer) > 60 Est GFR (Non-Af Amer) > 60 Glucose 124 H Calcium 9.0 Magnesium 1.8 Triglycerides 91 Cholesterol 125.22 LDL Cholesterol Direct 62 VLDL Cholesterol 18.0 HDL Cholesterol 51 12/30/17 12/31/17 12/31/17 19:25 01:23 07:20 Troponin I 0.048 0.057 0.063 Impressions: Chest X-Ray 12/30/17 15:16 IMPRESSION: Increasing density at the right base. See above differential. No overt congestive heart failure Chest CT 12/30/17 16:49 IMPRESSION: Bilateral pleural effusions -moderate on the right and small on the left. . Bronchiectatic change anteriorly right lung. Cardiomegaly. Mild aneurysmal change ascending aorta. Head CT 12/30/17 16:49 IMPRESSION: No acute intracranial pathology. Possible focal soft tissue swelling left parietal region. EVIDENCE OF ACUTE STROKE: NO. Assessment & Plan - Diagnosis (1) Acute on chronic congestive heart failure Qualifiers: Heart failure type: combined systolic and diastolic Qualified Code(s): I50.43 - Acute on chronic combined systolic (congestive) and diastolic ( congestive) heart failure Is this a current diagnosis for this admission?: Yes Plan: Echo reveals EF 30-45%, grade 2/mild to moderate diastolic dysfunction. Continue Lasix 40 mg IV every 12 hours for now. F/u BMP in a.m. (2) Atrial fibrillation Qualifiers: Atrial fibrillation type: unspecified Qualified Code(s): I48.91 - Unspecified atrial fibrillation Is this a current diagnosis for this admission?: Yes Plan: Currently rate controlled. Placed on Eliquis 5 mg p.o. twice daily by Dr. Cummins on 12/31/17. Falls precautions. We will continue metoprolol XL 25 mg daily for rate control and cardiomyopathy. (3) CAD (coronary artery disease) Qualifiers: Coronary Disease-Associated Artery/Lesion type: [place] artery [place] vs. transplanted heart: [place] heart Associated angina: angina presence unspecified Qualified Code(s): I25.10 - Atherosclerotic heart disease of [place] coronary artery without angina pectoris Is this a current diagnosis for this admission?: Yes Plan: Continue aspirin, atorvastatin (4) Diabetes Qualifiers: Diabetes mellitus type: type 2 Diabetes mellitus complication status: with unspecified complications Diabetes mellitus intermediate manager insulin use: without halfway use Qualified Code(s): E11.8 - Type 2 diabetes mellitus with unspecified complications Is this a current diagnosis for this admission?: Yes (5) Falls Qualifiers: Encounter type: subsequent encounter Qualified Code(s): W19.XXXD - Unspecified fall, subsequent encounter Is this a current diagnosis for this admission?: Yes Plan: PT following. Plan for rehab. (6) Hypomagnesemia Is this a current diagnosis for this admission?: Yes Plan: Follow-up magnesium level in a.m. (7) Unsteady gait Is this a current diagnosis for this admission?: Yes Plan: PT following. Plan for rehab.
--- NOTE | 2018-01-01 12:27 | PDOC PROGRESS REPORT ---
Subjective Progress Note for:: 01/01/18 Subjective:: Patient seems to be doing better with gradual improvement. Pt is denying any chest arm or neck discomfort. Patient denying any PND, orthopnea. Patient denied any sustained palpitations, dizziness, syncope, near syncope. Patient denying any fever chills. Patient denying any other significant discomfort. Patient still has shortness of breath on mild exertion and some pedal edema. Patient is maintaining sinus rhythm. Review of systems: Rest review of systems negative. Medications: Medications have been reviewed. Reason For Visit: ACUTE/CHRONIC CHF, HYPOMAGNESEMIA Physical Exam Vital Signs: Temp Pulse Resp BP Pulse Ox 97.4 F 83 20 138/83 H 96 01/01/18 08:02 01/01/18 08:02 01/01/18 08:02 01/01/18 08:02 01/01/18 08:02 Intake & Output 12/31/17 01/01/18 01/02/18 06:59 06:59 06:59 Intake Total 300 1080 Balance 300 1080 Weight 77.2 kg 73.3 kg Exam: GENERAL: well-nourished and in no acute distress. Alert and oriented x3 HEAD: Atraumatic, normocephalic. EYES: Pupils equal round and reactive to light, extraocular movements intact, sclera anicteric, conjunctiva are normal. ENT: TMs normal, nares patent, oropharynx clear without exudates. Moist mucous membranes. No oral ulcerations or bleeding gums noted NECK: supple without lymphadenopathy. Trachea is central. No cervical or axillary lymphadenopathy noted. Carotids are 2+, JVD WNL LUNGS: Respiration seems nonlabored, no significant accessory muscle action noted. Bibasilar fine crackles and few scattered wheezing noted. Mild dullness noted both bases. CHEST: Palpation of the chest wall shows no significant chest wall tenderness. No other significant abnormalities noted. 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 ABDOMEN: Soft, no significant tenderness appreciated, normoactive bowel sounds. No guarding, no rebound. No rigidity noted . No masses appreciated. EXTREMITIES: Pedal pulses are 1-2+, no calf tenderness noted. No clubbing or cyanosis. 1+ pedal edema noted NEUROLOGICAL: Focused neurological exam showed no significant neurologic deficit. Normal speech, no focal weakness appreciated. PSYCH: Normal mood, normal affect. Judgment and insight within normal limits. SKIN: No significant ecchymosis, rash, ulcerations or signs of pruritus noted. MUSCULOSKELETAL EXAM: No significant joint swelling noted. Results Laboratory Results: 12/31/17 07:23 12/31/17 07:23 12/31/17 22:35 Urine Color YELLOW Urine Appearance SLIGHTLY-CLOUDY Urine pH 5.0 Ur Specific [place] 1.010 Urine Protein NEGATIVE Urine Glucose (UA) NEGATIVE Urine Ketones NEGATIVE Urine Blood MODERATE H Urine Nitrite NEGATIVE Ur Leukocyte Esterase SMALL H Urine WBC (Auto) 3 Urine RBC (Auto) 104 12/30/17 12/31/17 12/31/17 19:25 01:23 07:20 Troponin I 0.048 0.057 0.063 EKG Comments: Telemetry strips shows sinus rhythm without any sustained tacky or bradyarrhythmias. Impressions: Chest X-Ray 12/30/17 15:16 IMPRESSION: Increasing density at the right base. See above differential. No overt congestive heart failure Chest CT 12/30/17 16:49 IMPRESSION: Bilateral pleural effusions -moderate on the right and small on the left. . Bronchiectatic change anteriorly right lung. Cardiomegaly. Mild aneurysmal change ascending aorta. Head CT 12/30/17 16:49 IMPRESSION: No acute intracranial pathology. Possible focal soft tissue swelling left parietal region. EVIDENCE OF ACUTE STROKE: NO. 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 transplanted heart: [place] heart Associated angina: angina presence unspecified Qualified Code(s): I25.10 - Atherosclerotic heart disease of [place] coronary artery without angina pectoris Is this a current diagnosis for this admission?: Yes (4) CHF (congestive heart failure) Qualifiers: Heart failure type: unspecified Heart failure chronicity: unspecified Qualified Code(s): I50.9 - Heart failure, unspecified Is this a current diagnosis for this admission?: Yes (5) Diabetes Qualifiers: Diabetes mellitus type: type 2 Diabetes mellitus complication status: with unspecified complications Diabetes mellitus terminal system operator insulin use: without terminal system operator use Qualified Code(s): E11.8 - Type 2 diabetes mellitus with unspecified complications Is this a current diagnosis for this admission?: Yes (6) Falls Qualifiers: Encounter type: subsequent encounter Qualified Code(s): W19.XXXD - Unspecified fall, subsequent encounter Is this a current diagnosis for this admission?: Yes (7) Hypomagnesemia Is this a current diagnosis for this admission?: Yes (9) Unsteady gait Is this a current diagnosis for this admission?: Yes (10) COPD (chronic obstructive pulmonary disease) Qualifiers: COPD type: COPD with acute exacerbation Qualified Code(s): J44.1 - Chronic obstructive pulmonary disease with (acute) exacerbation Is this a current diagnosis for this admission?: Yes - Notes Notes: 2D echo results reviewed. Rhythm strips reviewed. Acute on chronic congestive heart failure: Continue diuretic therapy. 2D echo shows combined systolic and diastolic as well as biventricular heart failure acute on chronic. Recommend beta-gonzalez therapy, diuretic therapy. Patient noted to be allergic to lisinopril. Therefore may not be able to use and entresto. Recommend spironolactone therapy. Hydralazine and nitrate therapy could also be used. Today potassium was noted to be 5.0 therefore spironolactone was not started. Atrial fibrillation: Recommend chronic anticoagulation given high chads score. Patient does have history of fall, patient will also benefit from physical therapy assessment and advice regarding prevention of fall by physical therapist. Patient today however noted to be in sinus rhythm. Coronary artery disease: Patient status post coronary artery bypass graft surgery. At this time in the absence of chest pain and other significant comorbid diagnosis and also underlying dementia, do not feel patient would be a candidate for invasive workup in the absence of significant anginal symptoms. Diabetes: Recommend good control of diabetes but avoid any hyper or hypoglycemia. COPD: Continue bronchodilator and antibiotic treatment as needed. Will leave management to hospitalist. History of fall: Recommend physical therapy. Pitting edema: Part of CHF. Patient could have associated venous insufficiency. Unsteady gait: Recommend physical therapy. - Time Time with patient: Greater than 35 minutes - CODE STATUS was discussed, patient remains full code. Surrogate decision-maker unchanged. Multiple medical problems were addressed. More than 50% of the time spent coordinating care, discussing management plans with involved caregivers. Management plans discussed with involved personnels. Medical decision making was of moderate to high complexity, patient's has multiple comorbidities. Medications reviewed and adjusted accordingly: Yes
[2018-01-01] MEDS ORDERED: ACETAMINOPHEN 325 MG TABLET PO PRN (15:30)
[2018-01-01] MEDS: ATORVASTATIN CALCIUM 80 MG TABLET PO SCH (21:24)
[2018-01-02 04:47] LABS: HEMATOCRIT 42.3 % (37.9-51.0); HEMOGLOBIN 12.8 g/dL (13.5-17.0); MEAN CORPUSCULAR HEMOGLOBIN 21.6 pg (27.0-33.4); MEAN CORPUSCULAR HGB CONC 30.3 g/dL (32.0-36.0); MEAN CORPUSCULAR VOLUME 71 fl (80-97); PLATELET COUNT 110 10^3/uL (150-450); RED BLOOD COUNT 5.93 10^6/uL (4.35-5.55); RED CELL DISTRIBUTION WIDTH 30.5 % (11.5-14.0); WHITE BLOOD COUNT 5.5 10^3/uL (4.0-10.5)
[2018-01-02 05:15] LABS: ANION GAP 10 (5-19); BLOOD UREA NITROGEN 32 mg/dL (7-20); CALCIUM 8.9 mg/dL (8.4-10.2); CARBON DIOXIDE 36 mmol/L (22-30); CHLORIDE 99 mmol/L (98-107); GLUCOSE 132 mg/dL (75-110); POTASSIUM 4.1 mmol/L (3.6-5.0); SODIUM 145.2 mmol/L (137-145)
[2018-01-02] MEDS: PREGABALIN 75 MG CAPSULE PO SCH ×3 (06:31→22:41)
[2018-01-02] MEDS: LANSOPRAZOLE 30 MG TAB.RAP.DR PO SCH (06:31)
[2018-01-02] MEDS: TOBRAMYCIN SULFATE/DEXAMETH OPH SUSP 2.5 ML OU SCH ×2 (09:46→19:58)
[2018-01-02 09:54] LABS: APPEARANCE,URINE CLEAR; BILIRUBIN,URINE NEGATIVE (NEGATIVE); COLOR,URINE YELLOW; GLUCOSE, URINE NEGATIVE (NEGATIVE); KETONES,URINE NEGATIVE (NEGATIVE); LEUKOCYTE ESTERASE,URINE NEGATIVE (NEGATIVE); NITRITE,URINE NEGATIVE (NEGATIVE); PROTEIN,URINE NEGATIVE (NEGATIVE); URINE SPECIFIC GRAVITY 1.008; UROBILINOGEN,URINE NEGATIVE mg/dL (<2.0)
--- NOTE | 2018-01-02 10:26 | PDOC PROGRESS REPORT ---
Subjective Progress Note for:: 01/02/18 Subjective:: Patient noted to be somewhat lethargic this morning but has normal vitals and looked comfortable. Pt is denying any chest arm or neck discomfort. Patient denying any PND, orthopnea. Patient denied any sustained palpitations, dizziness, syncope, near syncope. Patient denying any fever chills. Patient denying any other significant discomfort. Patient still has shortness of breath on mild exertion and some pedal edema. Patient is maintaining sinus rhythm. Review of systems: Rest review of systems negative. Medications: Medications have been reviewed. Reason For Visit: ACUTE/CHRONIC CHF, HYPOMAGNESEMIA Physical Exam Vital Signs: Temp Pulse Resp BP Pulse Ox 97.8 F 79 20 137/86 H 95 01/02/18 07:50 01/02/18 07:50 01/02/18 07:50 01/02/18 07:50 01/02/18 07:50 Intake & Output 01/01/18 01/02/18 01/03/18 06:59 06:59 06:59 Intake Total 1080 595 Balance 1080 595 Weight 73.3 kg 76.4 kg Exam: GENERAL: well-nourished and in no acute distress. Alert and oriented x3 HEAD: Atraumatic, normocephalic. EYES: Pupils equal round and reactive to light, extraocular movements intact, sclera anicteric, conjunctiva are normal. ENT: TMs normal, nares patent, oropharynx clear without exudates. Moist mucous membranes. No oral ulcerations or bleeding gums noted NECK: supple without lymphadenopathy. Trachea is central. No cervical or axillary lymphadenopathy noted. Carotids are 2+, JVD WNL LUNGS: Respiration seems nonlabored, no significant accessory muscle action noted. Bibasilar fine crackles and mild wheezes rales or rhonchi noted. No significant dullness noted on percussion. CHEST: Palpation of the chest wall shows no significant chest wall tenderness. No other significant abnormalities noted. 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 ABDOMEN: Soft, no significant tenderness appreciated, normoactive bowel sounds. No guarding, no rebound. No rigidity noted . No masses appreciated. EXTREMITIES: Pedal pulses are 1-2+, no calf tenderness noted. No clubbing or cyanosis. 1+ pedal edema noted NEUROLOGICAL: Focused neurological exam showed no significant neurologic deficit. Normal speech, no focal weakness appreciated. PSYCH: Normal mood, normal affect. Judgment and insight within normal limits. SKIN: No significant ecchymosis, rash, ulcerations or signs of pruritus noted. MUSCULOSKELETAL EXAM: No significant joint swelling noted. Results Laboratory Results: 01/02/18 03:41 01/02/18 03:41 01/01/18 01/02/18 01/02/18 13:07 03:41 03:41 WBC 5.5 RBC 5.93 H Hgb 12.8 L Hct 42.3 MCV 71 L MCH 21.6 L MCHC 30.3 L RDW 30.5 H Plt Count 110 L Sodium 145.2 H Potassium 4.1 Chloride 99 Carbon Dioxide 36 H Anion Gap 10 BUN 32 H Creatinine 1.12 Est GFR ( Amer) > 60 Est GFR (Non-Af Amer) > 60 Glucose 132 H Calcium 8.9 Magnesium 1.5 L Urine Color Urine Appearance Urine pH Ur Specific [place] Urine Protein Urine Glucose (UA) Urine Ketones Urine Blood Urine Nitrite Ur Leukocyte Esterase Urine WBC (Auto) Urine RBC (Auto) 01/02/18 08:20 WBC RBC Hgb Hct MCV MCH MCHC RDW Plt Count Sodium Potassium Chloride Carbon Dioxide Anion Gap BUN Creatinine Est GFR ( Amer) Est GFR (Non-Af Amer) Glucose Calcium Magnesium Urine Color YELLOW Urine Appearance CLEAR Urine pH 5.0 Ur Specific [place] 1.008 Urine Protein NEGATIVE Urine Glucose (UA) NEGATIVE Urine Ketones NEGATIVE Urine Blood LARGE H Urine Nitrite NEGATIVE Ur Leukocyte Esterase NEGATIVE Urine WBC (Auto) 0 Urine RBC (Auto) 12/30/17 12/31/17 12/31/17 19:25 01:23 07:20 Troponin I 0.048 0.057 0.063 EKG Comments: Telemetry shows sinus rhythm. Impressions: Chest X-Ray 12/30/17 15:16 IMPRESSION: Increasing density at the right base. See above differential. No overt congestive heart failure Chest CT 12/30/17 16:49 IMPRESSION: Bilateral pleural effusions -moderate on the right and small on the left. . Bronchiectatic change anteriorly right lung. Cardiomegaly. Mild aneurysmal change ascending aorta. Head CT 12/30/17 16:49 IMPRESSION: No acute intracranial pathology. Possible focal soft tissue swelling left parietal region. EVIDENCE OF ACUTE STROKE: NO. Assessment & Plan - Diagnosis (1) Acute on chronic congestive heart failure Qualifiers: Heart failure type: combined systolic and diastolic Qualified Code(s): I50.43 - Acute on chronic combined systolic (congestive) and diastolic ( congestive) heart failure Is this a current diagnosis for this admission?: Yes (2) Atrial fibrillation Qualifiers: Atrial fibrillation type: unspecified Qualified Code(s): I48.91 - Unspecified atrial fibrillation Is this a current diagnosis for this admission?: Yes (3) CAD (coronary artery disease) Qualifiers: Coronary Disease-Associated Artery/Lesion type: [place] artery [place] vs. transplanted heart: [place] heart Associated angina: angina presence unspecified Qualified Code(s): I25.10 - Atherosclerotic heart disease of [place] coronary artery without angina pectoris Is this a current diagnosis for this admission?: Yes (4) CHF (congestive heart failure) Qualifiers: Heart failure type: unspecified Heart failure chronicity: unspecified Qualified Code(s): I50.9 - Heart failure, unspecified Is this a current diagnosis for this admission?: Yes (5) Diabetes Qualifiers: Diabetes mellitus type: type 2 Diabetes mellitus complication status: with unspecified complications Diabetes mellitus commissary helper insulin use: without commissary helper use Qualified Code(s): E11.8 - Type 2 diabetes mellitus with unspecified complications Is this a current diagnosis for this admission?: Yes (6) Falls Qualifiers: Encounter type: subsequent encounter Qualified Code(s): W19.XXXD - Unspecified fall, subsequent encounter Is this a current diagnosis for this admission?: Yes (7) Hypomagnesemia Is this a current diagnosis for this admission?: Yes (9) Unsteady gait Is this a current diagnosis for this admission?: Yes (10) COPD (chronic obstructive pulmonary disease) Qualifiers: COPD type: COPD with acute exacerbation Qualified Code(s): J44.1 - Chronic obstructive pulmonary disease with (acute) exacerbation Is this a current diagnosis for this admission?: Yes - Notes Notes: Started patient on spironolactone 25 mg p.o. daily and also switched patient to torsemide 20 mg p.o. daily. Stopped IV Lasix. Checking chemistry panel and BNP level in a.m. May consider predischarge chest x-ray. Patient seems to be tolerating Eliquis therapy. Acute on chronic congestive heart failure: Continue diuretic therapy. 2D echo shows combined systolic and diastolic as well as biventricular heart failure acute on chronic. Continue current therapeutic regimen. Patient noted to be allergic to lisinopril. Exact allergy is not clear. Therefore may not be able to use and entresto. Recommend spironolactone therapy. Hydralazine and nitrate therapy could also be used. Today potassium was noted to be 5.0 therefore spironolactone was not started. Atrial fibrillation: Recommend chronic anticoagulation given high chads score. Patient does have history of fall, patient will also benefit from physical therapy assessment and advice regarding prevention of fall by physical therapist. Patient today however noted to be in sinus rhythm. Coronary artery disease: Patient status post coronary artery bypass graft surgery. At this time in the absence of chest pain and other significant comorbid diagnosis and also underlying dementia, do not feel patient would be a candidate for invasive workup in the absence of significant anginal symptoms. Diabetes: Recommend good control of diabetes but avoid any hyper or hypoglycemia. COPD: Continue bronchodilator and antibiotic treatment as needed. Will leave management to hospitalist. History of fall: Recommend physical therapy. Pitting edema: Part of CHF. Patient could have associated venous insufficiency. This is gradually improving. Recommend support stockings and keeping legs elevated when feasible. Unsteady gait: Recommend physical therapy. Addendum: Events of this morning reviewed with the hospitalist who had ordered an ABG which showed severe CO2 retention and acute on chronic respiratory failure. - Time Time with patient: Greater than 35 minutes - CODE STATUS was discussed, patient remains full code. Surrogate decision-maker unchanged. Multiple medical problems were addressed. More than 50% of the time spent coordinating care, discussing management plans with involved caregivers. Management plans discussed with involved personnels. Medical decision making was of moderate to high complexity, patient's has multiple comorbidities. Medications reviewed and adjusted accordingly: Yes
[2018-01-02 11:27] LABS: ANION GAP 10 (5-19); BLOOD UREA NITROGEN 30 mg/dL (7-20); CARBON DIOXIDE 35 mmol/L (22-30); CHLORIDE 99 mmol/L (98-107); GLUCOSE 123 mg/dL (75-110); POTASSIUM 4.1 mmol/L (3.6-5.0); SODIUM 144.4 mmol/L (137-145)
[2018-01-02 13:34] LABS: ARTERIAL BLOOD BASE EXCESS 6.8 mmol/L; ARTERIAL BLOOD H2CO3 3.05 mmol/L (1.05-1.35); ARTERIAL BLOOD HCO3 38.9 mmol/L (20-26); ARTERIAL BLOOD O2 SATURATION 91.1 % (94-98); ARTERIAL BLOOD PO2 76.3 mmHg (80-100)
[2018-01-02 13:35] LABS: ARTERIAL BLOOD FIO2 2L
[2018-01-02 13:38] LABS: ARTERIAL BLOOD PCO2 101.4 mmHg (35-45)
--- NOTE | 2018-01-02 14:13 | PDOC PROGRESS REPORT ---
Subjective Progress Note for:: 01/02/18 Subjective:: Patient more lethargic today. Minimal breakfast this morning and has been sleepy all day per report of his nurse. Reason For Visit: ACUTE/CHRONIC CHF, HYPOMAGNESEMIA Physical Exam Vital Signs: Temp Pulse Resp BP Pulse Ox 98.3 F 109 H 20 121/39 L 91 L 01/02/18 11:53 01/02/18 11:53 01/02/18 11:53 01/02/18 11:53 01/02/18 11:53 Intake & Output 01/01/18 01/02/18 01/03/18 06:59 06:59 06:59 Intake Total 1080 595 0 Output Total 1400 Balance 1080 595 -1400 Weight 73.3 kg 76.4 kg GEN: Elderly male, NAD, well-developed, sleeping and difficult to arouse. CV: RRR, NL S1S2, 2/6 CHUCK aortic area, 1/6 farmer systolic murmur mitral area LUNGS: Decreased breath sounds with fine scattered wheezes bilaterally ABDOMEN Soft, NT, +BS EXTERMITIES: 1+ pedal edema, no clubbing or cyanosis NEURO: Sleeping and unresponsive to verbal or tactile stimuli Results Laboratory Results: 01/02/18 03:41 01/02/18 10:34 01/01/18 01/02/18 01/02/18 13:07 03:41 03:41 WBC 5.5 RBC 5.93 H Hgb 12.8 L Hct 42.3 MCV 71 L MCH 21.6 L MCHC 30.3 L RDW 30.5 H Plt Count 110 L Carbonic Acid HCO3/H2CO3 Ratio ABG pH ABG pCO2 ABG pO2 ABG HCO3 ABG O2 Saturation ABG Base Excess FiO2 Sodium 145.2 H Potassium 4.1 Chloride 99 Carbon Dioxide 36 H Anion Gap 10 BUN 32 H Creatinine 1.12 Est GFR ( Amer) > 60 Est GFR (Non-Af Amer) > 60 Glucose 132 H Calcium 8.9 Magnesium 1.5 L Urine Color Urine Appearance Urine pH Ur Specific [place] Urine Protein Urine Glucose (UA) Urine Ketones Urine Blood Urine Nitrite Ur Leukocyte Esterase Urine WBC (Auto) Urine RBC (Auto) 01/02/18 01/02/18 01/02/18 08:20 10:34 13:15 WBC RBC Hgb Hct MCV MCH MCHC RDW Plt Count Carbonic Acid 3.05 H HCO3/H2CO3 Ratio 12:1 ABG pH 7.20 L* ABG pCO2 101.4 H* ABG pO2 76.3 L ABG HCO3 38.9 H ABG O2 Saturation 91.1 L ABG Base Excess 6.8 FiO2 2L Sodium 144.4 Potassium 4.1 Chloride 99 Carbon Dioxide 35 H Anion Gap 10 BUN 30 H Creatinine 1.04 Est GFR ( Amer) > 60 Est GFR (Non-Af Amer) > 60 Glucose 123 H Calcium 9.0 Magnesium Urine Color YELLOW Urine Appearance CLEAR Urine pH 5.0 Ur Specific [place] 1.008 Urine Protein NEGATIVE Urine Glucose (UA) NEGATIVE Urine Ketones NEGATIVE Urine Blood LARGE H Urine Nitrite NEGATIVE Ur Leukocyte Esterase NEGATIVE Urine WBC (Auto) 0 Urine RBC (Auto) 27 12/30/17 12/31/17 12/31/17 19:25 01:23 07:20 Troponin I 0.048 0.057 0.063 Impressions: Chest X-Ray 12/30/17 15:16 IMPRESSION: Increasing density at the right base. See above differential. No overt congestive heart failure Chest CT 12/30/17 16:49 IMPRESSION: Bilateral pleural effusions -moderate on the right and small on the left. . Bronchiectatic change anteriorly right lung. Cardiomegaly. Mild aneurysmal change ascending aorta. Head CT 12/30/17 16:49 IMPRESSION: No acute intracranial pathology. Possible focal soft tissue swelling left parietal region. EVIDENCE OF ACUTE STROKE: NO. Assessment & Plan - Diagnosis (1) Altered mental status Qualifiers: Altered mental status type: stupor Qualified Code(s): R40.1 - Stupor Is this a current diagnosis for this admission?: Yes Plan: Suspect secondary to CO2 retention. ABG checked on result as above PH 7.2 and PCO2 101. We will treat with BiPAP. (2) Acute on chronic congestive heart failure Qualifiers: Heart failure type: combined systolic and diastolic Qualified Code(s): I50.43 - Acute on chronic combined systolic (congestive) and diastolic ( congestive) heart failure Is this a current diagnosis for this admission?: Yes Plan: Echo reveals EF 30-45%, grade 2/mild to moderate diastolic dysfunction. Continue Lasix 40 mg IV every 12 hours for now. Patient apparently with unknown allergy to lisinopril, so Entresto not used. Spironolactone recommended and started by strip roller. F/u BMP in a.m. (3) Atrial fibrillation Qualifiers: Atrial fibrillation type: unspecified Qualified Code(s): I48.91 - Unspecified atrial fibrillation Is this a current diagnosis for this admission?: Yes Plan: Currently rate controlled. Placed on Eliquis 5 mg p.o. twice daily by Dr. Cummins on 12/31/17. Patient currently with hematuria, so we will stop Eliquis. Falls precautions. We will continue metoprolol XL 25 mg daily for rate control and cardiomyopathy. (4) CAD (coronary artery disease) Qualifiers: Coronary Disease-Associated Artery/Lesion type: [place] artery [place] vs. transplanted heart: [place] heart Associated angina: angina presence unspecified Qualified Code(s): I25.10 - Atherosclerotic heart disease of [place] coronary artery without angina pectoris Is this a current diagnosis for this admission?: Yes Plan: Continue aspirin, atorvastatin (5) Diabetes Qualifiers: Diabetes mellitus type: type 2 Diabetes mellitus complication status: with unspecified complications Diabetes mellitus termite inspector insulin use: without termite inspector use Qualified Code(s): E11.8 - Type 2 diabetes mellitus with unspecified complications Is this a current diagnosis for this admission?: Yes (6) Falls Qualifiers: Encounter type: subsequent encounter Qualified Code(s): W19.XXXD - Unspecified fall, subsequent encounter Is this a current diagnosis for this admission?: Yes Plan: PT following. Plan for rehab. (7) Hypomagnesemia Is this a current diagnosis for this admission?: Yes Plan: Follow-up magnesium level. (8) Unsteady gait Is this a current diagnosis for this admission?: Yes Plan: PT following. Plan for rehab. (9) COPD (chronic obstructive pulmonary disease) Is this a current diagnosis for this admission?: Yes Plan: Patient with CO2 retention at this time and altered mental status. We will treat with BiPAP We will treat with nebulizers Follow-up mental status; repeat ABG as needed.
[2018-01-02] MEDS: DULOXETINE HCL 30 MG CAPSULE.DR PO SCH (15:05)
[2018-01-02] MEDS: MEMANTINE HCL 10 MG TABLET PO SCH (15:05)
[2018-01-02] MEDS: TORSEMIDE 20 MG TABLET PO SCH (15:05)
[2018-01-02] MEDS: APIXABAN 5 MG TABLET PO SCH (15:05)
[2018-01-02] MEDS: SPIRONOLACTONE 25 MG TABLET PO SCH (15:05)
[2018-01-02] MEDS: METOPROLOL SUCCINATE 25 MG TAB.SR.24H PO SCH (15:05)
[2018-01-02] MEDS: FERROUS SULFATE 325 MG TABLET PO SCH (15:05)
[2018-01-02 18:23] LABS: ARTERIAL BLOOD BASE EXCESS 5.4 mmol/L; ARTERIAL BLOOD FIO2 45%; ARTERIAL BLOOD H2CO3 2.29 mmol/L (1.05-1.35); ARTERIAL BLOOD HCO3 34.7 mmol/L (20-26); ARTERIAL BLOOD PH 7.28 (7.35-7.45); ARTERIAL BLOOD PO2 94.5 mmHg (80-100); ARTERIAL BLOOD TOTAL CO2 37.1 mmol/L (23-27)
[2018-01-02 20:59] LABS: ARTERIAL BLOOD BASE EXCESS 7.9 mmol/L; ARTERIAL BLOOD HCO3 37.5 mmol/L (20-26); ARTERIAL BLOOD O2 SATURATION 97.1 % (94-98); ARTERIAL BLOOD PH 7.29 (7.35-7.45); ARTERIAL BLOOD PO2 106.6 mmHg (80-100)
[2018-01-02 21:01] LABS: ARTERIAL BLOOD FIO2 45%
[2018-01-02 21:02] LABS: ARTERIAL BLOOD PCO2 79.8 mmHg (35-45)
[2018-01-02] MEDS: ATORVASTATIN CALCIUM 80 MG TABLET PO SCH (22:41)
[2018-01-02] MEDS: PANTOPRAZOLE SODIUM 40 MG VIAL IV SCH (22:48)
[2018-01-03 04:59] LABS: BLOOD UREA NITROGEN 31 mg/dL (7-20); CALCIUM 8.4 mg/dL (8.4-10.2); GLUCOSE 108 mg/dL (75-110)
[2018-01-03 05:04] LABS: CARBON DIOXIDE 39 mmol/L (22-30); CHLORIDE 102 mmol/L (98-107); SODIUM 143.2 mmol/L (137-145)
[2018-01-03 05:08] LABS: ANION GAP 3 (5-19)
[2018-01-03] MEDS: LANSOPRAZOLE 30 MG TAB.RAP.DR PO SCH (05:18)
[2018-01-03] MEDS: PREGABALIN 75 MG CAPSULE PO SCH ×3 (05:18→21:05)
[2018-01-03 09:28] LABS: ABSOLUTE EOSINOPHILS # (AUTO) 0.2 10^3/uL (0.0-0.6); ABSOLUTE LYMPHOCYTES (AUTO) 0.8 10^3/uL (0.5-4.7); ABSOLUTE MONOCYTES (AUTO) 0.4 10^3/uL (0.1-1.4); ABSOLUTE NEUT (AUTO) 3.2 10^3/uL (1.7-8.2); EOSINOPHILS % (AUTO) 3.4 % (0-6); HEMATOCRIT 41.9 % (37.9-51.0); HEMOGLOBIN 12.4 g/dL (13.5-17.0); MEAN CORPUSCULAR HEMOGLOBIN 21.5 pg (27.0-33.4); MEAN CORPUSCULAR HGB CONC 29.7 g/dL (32.0-36.0); MEAN CORPUSCULAR VOLUME 72 fl (80-97); MONOCYTES % (AUTO) 9.8 % (3-13); PLATELET COUNT 122 10^3/uL (150-450); RED BLOOD COUNT 5.79 10^6/uL (4.35-5.55); SEGMENTED NEUTROPHILS % (AUTO) 68.8 % (42-78); TOTAL CELLS COUNTED % (AUTO) 100 %; WHITE BLOOD COUNT 4.6 10^3/uL (4.0-10.5)
[2018-01-03 09:53] LABS: ANISOCYTOSIS 2+; OVALOCYTES SLIGHT; PLATELET COMMENT ADEQUATE; POIKILOCYTOSIS 1+; TARGET CELLS SLIGHT
[2018-01-03] MEDS: DULOXETINE HCL 30 MG CAPSULE.DR PO SCH (10:42)
[2018-01-03] MEDS: PANTOPRAZOLE SODIUM 40 MG VIAL IV SCH ×2 (10:42→22:00)
[2018-01-03] MEDS: FERROUS SULFATE 325 MG TABLET PO SCH (10:43)
[2018-01-03] MEDS: TORSEMIDE 20 MG TABLET PO SCH (10:43)
[2018-01-03] MEDS: SPIRONOLACTONE 25 MG TABLET PO SCH (10:43)
[2018-01-03] MEDS: MEMANTINE HCL 10 MG TABLET PO SCH (10:44)
[2018-01-03] MEDS: METOPROLOL SUCCINATE 25 MG TAB.SR.24H PO SCH ×2 (10:44→18:50)
[2018-01-03] MEDS: TOBRAMYCIN SULFATE/DEXAMETH OPH SUSP 2.5 ML OU SCH ×2 (10:45→18:51)
--- NOTE | 2018-01-03 14:24 | PDOC PROGRESS REPORT ---
Subjective Progress Note for:: 01/03/18 Subjective:: Patient remains lethargic but somewhat better than yesterday. Yesterday he was noted to have severe CO2 retention. Currently on bilevel therapy. Pt is denying any chest arm or neck discomfort. Patient denying any PND, orthopnea. Patient denied any sustained palpitations, dizziness, syncope, near syncope. Patient denying any fever chills. Patient denying any other significant discomfort. Patient still has shortness of breath at rest and some pedal edema. Patient is maintaining sinus rhythm. Review of systems: Rest review of systems negative. Medications: Medications have been reviewed. Reason For Visit: ACUTE/CHRONIC CHF, HYPOMAGNESEMIA Physical Exam Vital Signs: Temp Pulse Resp BP Pulse Ox 97.8 F 72 18 97/54 L 96 01/03/18 11:42 01/03/18 11:42 01/03/18 12:05 01/03/18 11:42 01/03/18 12:05 Intake & Output 01/02/18 01/03/18 01/04/18 06:59 06:59 06:59 Intake Total 595 60 Output Total 3200 Balance 595 -3140 Weight 76.4 kg 77.8 kg Exam: GENERAL: well-nourished and in no acute distress. Alert and oriented x3 HEAD: Atraumatic, normocephalic. EYES: Pupils equal round and reactive to light, extraocular movements intact, sclera anicteric, conjunctiva are normal. ENT: TMs normal, nares patent, oropharynx clear without exudates. Moist mucous membranes. No oral ulcerations or bleeding gums noted NECK: supple without lymphadenopathy. Trachea is central. No cervical or axillary lymphadenopathy noted. Carotids are 2+, JVD 8 cm LUNGS: Respiration seems nonlabored, no significant accessory muscle action noted. Bilateral coarse crackles and coarse bilateral wheezes rales or rhonchi noted. No significant dullness noted on percussion. CHEST: Palpation of the chest wall shows no significant chest wall tenderness. No other significant abnormalities noted. HEART: [place] RN SOCIAL SERVICES, No PSH, 1/6 CHUCK aortic area, 1/6 farmer systolic murmur mitral area, no rubs, no gallops. ABDOMEN: Soft, no significant tenderness appreciated, normoactive bowel sounds. No guarding, no rebound. No rigidity noted . No masses appreciated. EXTREMITIES: Pedal pulses are 1-2+, no calf tenderness noted. No clubbing or cyanosis. 1-2 + pedal edema noted NEUROLOGICAL: Focused neurological exam showed no significant neurologic deficit. Normal speech, no focal weakness appreciated. PSYCH: Normal mood, normal affect. Judgment and insight within normal limits. SKIN: No significant ecchymosis, rash, ulcerations or signs of pruritus noted. MUSCULOSKELETAL EXAM: No significant joint swelling noted. Results Laboratory Results: 01/03/18 08:59 01/03/18 03:49 01/02/18 01/02/18 01/03/18 18:20 20:45 03:49 WBC Cancelled RBC Cancelled Hgb Cancelled Hct Cancelled MCV Cancelled MCH Cancelled MCHC Cancelled RDW Cancelled Plt Count Cancelled Seg Neutrophils % Cancelled Lymphocytes % Cancelled Monocytes % Cancelled Eosinophils % Cancelled Basophils % Cancelled Absolute Neutrophils Cancelled Absolute Lymphocytes Cancelled Absolute Monocytes Cancelled Absolute Eosinophils Cancelled Absolute Basophils Cancelled Carbonic Acid 2.29 H 2.40 H HCO3/H2CO3 Ratio 15:1 15:1 ABG pH 7.28 L 7.29 L ABG pCO2 76.0 H* 79.8 H* ABG pO2 94.5 106.6 H ABG HCO3 34.7 H 37.5 H ABG O2 Saturation 96.0 97.1 ABG Base Excess 5.4 7.9 FiO2 45% 45% Sodium Potassium Chloride Carbon Dioxide Anion Gap BUN Creatinine Est GFR ( Amer) Est GFR (Non-Af Amer) Glucose Calcium Magnesium 01/03/18 01/03/18 01/03/18 03:49 05:13 08:59 WBC Cancelled 4.6 RBC Cancelled 5.79 H Hgb Cancelled 12.4 L Hct Cancelled 41.9 MCV Cancelled 72 L MCH Cancelled 21.5 L MCHC Cancelled 29.7 L RDW Cancelled 30.0 H Plt Count Cancelled 122 L Seg Neutrophils % Cancelled 68.8 Lymphocytes % Cancelled 17.0 Monocytes % Cancelled 9.8 Eosinophils % Cancelled 3.4 Basophils % Cancelled 1.0 Absolute Neutrophils Cancelled 3.2 Absolute Lymphocytes Cancelled 0.8 Absolute Monocytes Cancelled 0.4 Absolute Eosinophils Cancelled 0.2 Absolute Basophils Cancelled 0.0 Carbonic Acid HCO3/H2CO3 Ratio ABG pH ABG pCO2 ABG pO2 ABG HCO3 ABG O2 Saturation ABG Base Excess FiO2 Sodium 143.2 Potassium 4.0 Chloride 102 Carbon Dioxide 39 H Anion Gap 3 L BUN 31 H Creatinine 1.10 Est GFR ( Amer) > 60 Est GFR (Non-Af Amer) > 60 Glucose 108 Calcium 8.4 Magnesium 1.4 L 12/30/17 12/31/17 12/31/17 19:25 01:23 07:20 Troponin I 0.048 0.057 0.063 NT-Pro-B Natriuret Pep 01/03/18 03:49 Troponin I NT-Pro-B Natriuret Pep 51263 H EKG Comments: Telemetry strips reviewed showed sinus rhythm. Impressions: Chest X-Ray 12/30/17 15:16 IMPRESSION: Increasing density at the right base. See above differential. No overt congestive heart failure Chest CT 12/30/17 16:49 IMPRESSION: Bilateral pleural effusions -moderate on the right and small on the left. . Bronchiectatic change anteriorly right lung. Cardiomegaly. Mild aneurysmal change ascending aorta. Head CT 12/30/17 16:49 IMPRESSION: No acute intracranial pathology. Possible focal soft tissue swelling left parietal region. EVIDENCE OF ACUTE STROKE: NO. Assessment & Plan - Diagnosis (1) Respiratory failure Qualifiers: Chronicity: acute on chronic Respiratory failure complication: hypoxia and hypercapnia Qualified Code(s): J96.21 - Acute and chronic respiratory failure with hypoxia; J96.22 - Acute and chronic respiratory failure with hypercapnia; J96.22 - Acute and chronic respiratory failure with hypercapnia; J96.22 - Acute and chronic respiratory failure with hypercapnia Is this a current diagnosis for this admission?: Yes (2) COPD (chronic obstructive pulmonary disease) Qualifiers: COPD type: COPD with acute exacerbation Qualified Code(s): J44.1 - Chronic obstructive pulmonary disease with (acute) exacerbation Is this a current diagnosis for this admission?: Yes (3) Acute on chronic congestive heart failure Qualifiers: Heart failure type: combined systolic and diastolic Qualified Code(s): I50.43 - Acute on chronic combined systolic (congestive) and diastolic ( congestive) heart failure Is this a current diagnosis for this admission?: Yes (4) Atrial fibrillation Qualifiers: Atrial fibrillation type: unspecified Qualified Code(s): I48.91 - Unspecified atrial fibrillation Is this a current diagnosis for this admission?: Yes (5) CAD (coronary artery disease) Qualifiers: Coronary Disease-Associated Artery/Lesion type: [place] artery [place] vs. transplanted heart: [place] heart Associated angina: angina presence unspecified Qualified Code(s): I25.10 - Atherosclerotic heart disease of [place] coronary artery without angina pectoris Is this a current diagnosis for this admission?: Yes (6) CHF (congestive heart failure) Qualifiers: Heart failure type: unspecified Heart failure chronicity: unspecified Qualified Code(s): I50.9 - Heart failure, unspecified Is this a current diagnosis for this admission?: Yes (7) Diabetes Qualifiers: Diabetes mellitus type: type 2 Diabetes mellitus complication status: with unspecified complications Diabetes mellitus senior care insulin use: without terminal manager use Qualified Code(s): E11.8 - Type 2 diabetes mellitus with unspecified complications Is this a current diagnosis for this admission?: Yes (8) Falls Qualifiers: Encounter type: subsequent encounter Qualified Code(s): W19.XXXD - Unspecified fall, subsequent encounter Is this a current diagnosis for this admission?: Yes (9) Hypomagnesemia Is this a current diagnosis for this admission?: Yes (11) Unsteady gait Is this a current diagnosis for this admission?: Yes - Notes Notes: COPD: Patient noted to have acute exacerbation with significant retention of CO2 and hypoxemia. Patient now noted to be DNR. He has a living will. Currently on bilevel therapy. Continue bronchodilator, antibiotic and steroid treatment as needed. Respiratory failure acute on chronic: Patient noted to have chronic COPD. Will do a chest x-ray to rule out any pneumonia, increasing CHF etc. as cause of worsening respiratory failure. Acute on chronic congestive heart failure: Continue diuretic therapy. 2D echo shows combined systolic and diastolic as well as biventricular heart failure acute on chronic. Continue current therapeutic regimen. Patient noted to be allergic to lisinopril. Exact allergy is not clear. CHF therapy was optimized yesterday. Atrial fibrillation: Recommend chronic anticoagulation given high chads score. Patient does have history of fall, patient will also benefit from physical therapy assessment and advice regarding prevention of fall by physical therapist. Patient today however noted to be in sinus rhythm. Coronary artery disease: Patient status post coronary artery bypass graft surgery. At this time in the absence of chest pain and other significant comorbid diagnosis and also underlying dementia, do not feel patient would be a candidate for invasive workup in the absence of significant anginal symptoms. Diabetes: Recommend good control of diabetes but avoid any hyper or hypoglycemia. History of fall: Recommend physical therapy. Pitting edema: Part of CHF. Patient could have associated venous insufficiency. This is gradually improving. Recommend support stockings and keeping legs elevated when feasible. - Time Time with patient: Greater than 35 minutes - CODE STATUS : was discussed, patient remains DO NOT RESUSCITATE. Surrogate decision-maker unchanged. Multiple medical problems were addressed. More than 50% of the time spent coordinating care, discussing management plans with involved caregivers. Management plans discussed with involved personnels. Medical decision making was of moderate to high complexity, patient's has multiple comorbidities. Medications reviewed and adjusted accordingly: Yes
[2018-01-03] MEDS ORDERED: METOPROLOL TARTRATE PF/INJ 5 MG/5 ML SDV IV ONE (14:30)
--- NOTE | 2018-01-03 15:24 | RADIOLOGY REPORT (SQ) ---
EXAM DESCRIPTION: CHEST SINGLE VIEW COMPLETED DATE/TIME: 01/03/2018 3:01 pm REASON FOR STUDY: follow-up CHF, respiratory failure COMPARISON: 12/30/2017 EXAM PARAMETERS: NUMBER OF VIEWS: One view. TECHNIQUE: Single frontal radiographic view of the chest acquired. RADIATION DOSE: NA LIMITATIONS: None. FINDINGS: LUNGS AND PLEURA: Slightly increased volume of the right-sided pleural effusion. Persiste nt small left pleural effusion. No new focal consolidation. No pneumothorax. MEDIASTINUM AND HILAR STRUCTURES: Stable. HEART AND VASCULAR STRUCTURES: Stable. BONES: No acute findings. HARDWARE: Midline surgical changes. OTHER: No other significant finding. IMPRESSION: Slightly increased volume of a right-sided pleural effusion; stable left pleural effusio n. No new focal consolidation or pneumothorax. TECHNICAL DOCUMENTATION: JOB ID: [id number] [employer]- All Rights Reserved Reading location - IP/workstation name: [email or web address]
--- NOTE | 2018-01-03 18:06 | PDOC PROGRESS REPORT ---
Subjective Subjective:: More awake today, ate breakfast, breathing better at this time. Have episodes of rapid A. fib to 130s. No chest pain or feeling of palpitations. Reason For Visit: ACUTE/CHRONIC CHF, HYPOMAGNESEMIA Physical Exam Vital Signs: Temp Pulse Resp BP Pulse Ox 97.8 F 117 H 18 97/54 L 97 01/03/18 11:42 01/03/18 14:00 01/03/18 12:05 01/03/18 11:42 01/03/18 16:33 Intake & Output 01/02/18 01/03/18 01/04/18 06:59 06:59 06:59 Intake Total 595 60 120 Output Total 3200 925 Balance 595 -7110 -805 Weight 76.4 kg 77.8 kg GEN: Elderly male, NAD, well-developed, sleeping and difficult to arouse. CV: RRR, NL S1S2, 2/6 CHUCK aortic area, 1/6 farmer systolic murmur mitral area LUNGS: Decreased breath sounds with fine scattered wheezes and basilar crackles bilaterally ABDOMEN Soft, NT, +BS EXTERMITIES: 1+ pedal edema, no clubbing or cyanosis NEURO: Alert, oriented to name and place, generalized weakness but no focal weakness Results Laboratory Results: 01/03/18 08:59 01/03/18 03:49 01/02/18 01/02/18 01/03/18 18:20 20:45 03:49 WBC Cancelled RBC Cancelled Hgb Cancelled Hct Cancelled MCV Cancelled MCH Cancelled MCHC Cancelled RDW Cancelled Plt Count Cancelled Seg Neutrophils % Cancelled Lymphocytes % Cancelled Monocytes % Cancelled Eosinophils % Cancelled Basophils % Cancelled Absolute Neutrophils Cancelled Absolute Lymphocytes Cancelled Absolute Monocytes Cancelled Absolute Eosinophils Cancelled Absolute Basophils Cancelled Carbonic Acid 2.29 H 2.40 H HCO3/H2CO3 Ratio 15:1 15:1 ABG pH 7.28 L 7.29 L ABG pCO2 76.0 H* 79.8 H* ABG pO2 94.5 106.6 H ABG HCO3 34.7 H 37.5 H ABG O2 Saturation 96.0 97.1 ABG Base Excess 5.4 7.9 FiO2 45% 45% Sodium Potassium Chloride Carbon Dioxide Anion Gap BUN Creatinine Est GFR ( Amer) Est GFR (Non-Af Amer) Glucose Calcium Magnesium 01/03/18 01/03/18 01/03/18 03:49 05:13 08:59 WBC Cancelled 4.6 RBC Cancelled 5.79 H Hgb Cancelled 12.4 L Hct Cancelled 41.9 MCV Cancelled 72 L MCH Cancelled 21.5 L MCHC Cancelled 29.7 L RDW Cancelled 30.0 H Plt Count Cancelled 122 L Seg Neutrophils % Cancelled 68.8 Lymphocytes % Cancelled 17.0 Monocytes % Cancelled 9.8 Eosinophils % Cancelled 3.4 Basophils % Cancelled 1.0 Absolute Neutrophils Cancelled 3.2 Absolute Lymphocytes Cancelled 0.8 Absolute Monocytes Cancelled 0.4 Absolute Eosinophils Cancelled 0.2 Absolute Basophils Cancelled 0.0 Carbonic Acid HCO3/H2CO3 Ratio ABG pH ABG pCO2 ABG pO2 ABG HCO3 ABG O2 Saturation ABG Base Excess FiO2 Sodium 143.2 Potassium 4.0 Chloride 102 Carbon Dioxide 39 H Anion Gap 3 L BUN 31 H Creatinine 1.10 Est GFR ( Amer) > 60 Est GFR (Non-Af Amer) > 60 Glucose 108 Calcium 8.4 Magnesium 1.4 L 12/30/17 12/31/17 12/31/17 19:25 01:23 07:20 Troponin I 0.048 0.057 0.063 NT-Pro-B Natriuret Pep 01/03/18 03:49 Troponin I NT-Pro-B Natriuret Pep 33664 H Impressions: Chest CT 12/30/17 16:49 IMPRESSION: Bilateral pleural effusions -moderate on the right and small on the left. . Bronchiectatic change anteriorly right lung. Cardiomegaly. Mild aneurysmal change ascending aorta. Head CT 12/30/17 16:49 IMPRESSION: No acute intracranial pathology. Possible focal soft tissue swelling left parietal region. EVIDENCE OF ACUTE STROKE: NO. Chest X-Ray 01/03/18 14:27 IMPRESSION: Slightly increased volume of a right-sided pleural effusion; stable left pleural effusion. No new focal consolidation or pneumothorax. Assessment & Plan - Diagnosis (1) Altered mental status Qualifiers: Altered mental status type: stupor Qualified Code(s): R40.1 - Stupor Is this a current diagnosis for this admission?: Yes Plan: Suspect secondary to CO2 retention. Improved with BiPAP. Continue BiPAP as needed. Patient not intubated overnight because he is now DNR. (2) Acute on chronic congestive heart failure Qualifiers: Heart failure type: combined systolic and diastolic Qualified Code(s): I50.43 - Acute on chronic combined systolic (congestive) and diastolic ( congestive) heart failure Is this a current diagnosis for this admission?: Yes Plan: Echo reveals EF 30-45%, grade 2/mild to moderate diastolic dysfunction. Now off Lasix 40 mg IV, continue torsemide and spironolactone per cardiology recommendation. Patient apparently with unknown allergy to lisinopril, so Entresto not used. F/u BMP in a.m. (3) Atrial fibrillation Qualifiers: Atrial fibrillation type: unspecified Qualified Code(s): I48.91 - Unspecified atrial fibrillation Is this a current diagnosis for this admission?: Yes Plan: Currently rate controlled. Placed on Eliquis 5 mg p.o. twice daily by Dr. Cummins on 12/31/17. Patient currently with hematuria, so we will stop Eliquis. Falls precautions. We will increase metoprolol XL 25 mg daily to bid for better rate control and cardiomyopathy. (4) CAD (coronary artery disease) Qualifiers: Coronary Disease-Associated Artery/Lesion type: [place] artery [place] vs. transplanted heart: [place] heart Associated angina: angina presence unspecified Qualified Code(s): I25.10 - Atherosclerotic heart disease of [place] coronary artery without angina pectoris Is this a current diagnosis for this admission?: Yes Plan: Continue aspirin, atorvastatin (5) Diabetes Qualifiers: Diabetes mellitus type: type 2 Diabetes mellitus complication status: with unspecified complications Diabetes mellitus terminal press operator insulin use: without residential use Qualified Code(s): E11.8 - Type 2 diabetes mellitus with unspecified complications Is this a current diagnosis for this admission?: Yes (6) Falls Qualifiers: Encounter type: subsequent encounter Qualified Code(s): W19.XXXD - Unspecified fall, subsequent encounter Is this a current diagnosis for this admission?: Yes Plan: PT following. Plan for rehab. (7) Hypomagnesemia Is this a current diagnosis for this admission?: Yes Plan: Magnesium today 1.4. We will replete with magnesium IV. Follow-up magnesium level. (8) Unsteady gait Is this a current diagnosis for this admission?: Yes Plan: PT following. Plan for rehab. (9) COPD (chronic obstructive pulmonary disease) Qualifiers: Emphysema type: unspecified Is this a current diagnosis for this admission?: Yes Plan: Patient with CO2 retention treated with BiPAP and altered mental status has improved at this time. We will continue with BiPAP as needed We will continue with nebulizers as needed Follow-up mental status; repeat ABG as needed.
[2018-01-03] MEDS ORDERED: METOPROLOL TARTRATE PF/INJ 5 MG/5 ML SDV IV PRN (20:14)
[2018-01-03] MEDS: MAGNESIUM SULFATE/D5W 1 GM/100 ML RTUPB IV SCH ×2 (20:35→22:00)
[2018-01-03] MEDS: ATORVASTATIN CALCIUM 80 MG TABLET PO SCH (21:05)
[2018-01-04] MEDS: LANSOPRAZOLE 30 MG TAB.RAP.DR PO SCH (05:23)
[2018-01-04] MEDS: PREGABALIN 75 MG CAPSULE PO SCH ×3 (05:23→23:07)
--- NOTE | 2018-01-04 10:03 | PDOC PROGRESS REPORT ---
Subjective Subjective:: I awake and interactive at this time. Use BiPAP overnight. Rate better controlled, received only a once a day dose dose of metoprolol yesterday because had refused the evening dose. No chest pain or palpitations, fever or chills, shortness of breath improved. Reason For Visit: ACUTE/CHRONIC CHF, HYPOMAGNESEMIA Physical Exam Vital Signs: Temp Pulse Resp BP Pulse Ox 97.4 F 108 H 12 131/75 H 97 01/04/18 03:31 01/04/18 08:00 01/04/18 04:00 01/04/18 03:31 01/04/18 08:00 Intake & Output 01/03/18 01/04/18 01/05/18 06:59 06:59 06:59 Intake Total 60 145 Output Total 3200 4225 400 Balance -3140 -8540 -400 Weight 77.8 kg 62.6 kg GEN: Elderly male, NAD, well-developed CV: RRR, NL S1S2, 2/6 CHUCK aortic area, 1/6 farmer systolic murmur mitral area LUNGS: Decreased breath sounds with fine scattered wheezes and basilar crackles bilaterally ABDOMEN Soft, NT, +BS EXTERMITIES: 1+ pedal edema, no clubbing or cyanosis NEURO: Alert, oriented to name and place, generalized weakness but no focal weakness Results Laboratory Results: 01/03/18 08:59 01/03/18 03:49 01/03/18 08:59 WBC 4.6 RBC 5.79 H Hgb 12.4 L Hct 41.9 MCV 72 L MCH 21.5 L MCHC 29.7 L RDW 30.0 H Plt Count 122 L Seg Neutrophils % 68.8 Lymphocytes % 17.0 Monocytes % 9.8 Eosinophils % 3.4 Basophils % 1.0 Absolute Neutrophils 3.2 Absolute Lymphocytes 0.8 Absolute Monocytes 0.4 Absolute Eosinophils 0.2 Absolute Basophils 0.0 12/30/17 12/31/17 12/31/17 19:25 01:23 07:20 Troponin I 0.048 0.057 0.063 NT-Pro-B Natriuret Pep 01/03/18 03:49 Troponin I NT-Pro-B Natriuret Pep [id number] H Impressions: Chest CT 12/30/17 16:49 IMPRESSION: Bilateral pleural effusions -moderate on the right and small on the left. . Bronchiectatic change anteriorly right lung. Cardiomegaly. Mild aneurysmal change ascending aorta. Head CT 12/30/17 16:49 IMPRESSION: No acute intracranial pathology. Possible focal soft tissue swelling left parietal region. EVIDENCE OF ACUTE STROKE: NO. Chest X-Ray 01/03/18 14:27 IMPRESSION: Slightly increased volume of a right-sided pleural effusion; stable left pleural effusion. No new focal consolidation or pneumothorax. Assessment & Plan - Diagnosis (1) Altered mental status Qualifiers: Altered mental status type: stupor Qualified Code(s): R40.1 - Stupor Is this a current diagnosis for this admission?: Yes Plan: Suspect secondary to CO2 retention. Improved with BiPAP. Continue BiPAP as needed. Patient is DNR, so no intubation. Improved right now in any case. (2) Acute on chronic congestive heart failure Qualifiers: Heart failure type: combined systolic and diastolic Qualified Code(s): I50.43 - Acute on chronic combined systolic (congestive) and diastolic ( congestive) heart failure Is this a current diagnosis for this admission?: Yes Plan: Echo reveals EF 30-45%, grade 2/mild to moderate diastolic dysfunction. Now off Lasix 40 mg IV, continue torsemide and spironolactone per cardiology recommendation. Patient apparently with unknown allergy to lisinopril, so Entresto not used. F/u BMP in a.m. (3) Atrial fibrillation Qualifiers: Atrial fibrillation type: unspecified Qualified Code(s): I48.91 - Unspecified atrial fibrillation Is this a current diagnosis for this admission?: Yes Plan: Currently rate controlled. Placed on Eliquis 5 mg p.o. twice daily by Dr. Cummins on 12/31/17, but was . Patient currently without hematuria off Eliquis. Continue falls precautions. We will decreased metoprolol XL back to 25 mg daily as rate better. (4) CAD (coronary artery disease) Qualifiers: Coronary Disease-Associated Artery/Lesion type: [place] artery [place] vs. transplanted heart: [place] heart Associated angina: angina presence unspecified Qualified Code(s): I25.10 - Atherosclerotic heart disease of [place] coronary artery without angina pectoris Is this a current diagnosis for this admission?: Yes Plan: Continue aspirin, atorvastatin (5) Diabetes Qualifiers: Diabetes mellitus type: type 2 Diabetes mellitus complication status: with unspecified complications Diabetes mellitus computer terminal operator insulin use: without computer terminal operator use Qualified Code(s): E11.8 - Type 2 diabetes mellitus with unspecified complications Is this a current diagnosis for this admission?: Yes (6) Falls Qualifiers: Encounter type: subsequent encounter Qualified Code(s): W19.XXXD - Unspecified fall, subsequent encounter Is this a current diagnosis for this admission?: Yes Plan: PT following. Plan for rehab. (7) Hypomagnesemia Is this a current diagnosis for this admission?: Yes Plan: Magnesium yesterday 1.4. Magnesium 2 g given IV. Follow-up magnesium level. (8) Unsteady gait Is this a current diagnosis for this admission?: Yes Plan: PT following. Plan for rehab. (9) COPD (chronic obstructive pulmonary disease) Is this a current diagnosis for this admission?: Yes Plan: Patient with CO2 retention treated with BiPAP and altered mental status has improved at this time. We will continue with BiPAP as needed We will continue with nebulizers as needed Continue to follow-up mental status; repeat ABG as needed.
[2018-01-04] MEDS: TORSEMIDE 20 MG TABLET PO SCH (11:39)
[2018-01-04] MEDS: METOPROLOL SUCCINATE 25 MG TAB.SR.24H PO SCH ×2 (11:39→18:52)
[2018-01-04] MEDS: PANTOPRAZOLE SODIUM 40 MG VIAL IV SCH ×2 (11:39→23:06)
[2018-01-04] MEDS: DULOXETINE HCL 30 MG CAPSULE.DR PO SCH (11:39)
[2018-01-04] MEDS: FERROUS SULFATE 325 MG TABLET PO SCH (11:40)
[2018-01-04] MEDS: SPIRONOLACTONE 25 MG TABLET PO SCH (11:40)
[2018-01-04] MEDS: TOBRAMYCIN SULFATE/DEXAMETH OPH SUSP 2.5 ML OU SCH ×2 (11:40→18:52)
[2018-01-04] MEDS: MEMANTINE HCL 10 MG TABLET PO SCH (11:40)
--- NOTE | 2018-01-04 11:58 | PDOC PROGRESS REPORT ---
Subjective Progress Note for:: 01/04/18 Subjective:: Patient better today. More alert. Pt is denying any chest arm or neck discomfort. Patient denying any PND, orthopnea. Patient denied any sustained palpitations, dizziness, syncope, near syncope. Patient denying any fever chills. Patient denying any other significant discomfort. Patient still has shortness of breath on mild exertion and some pedal edema. Patient is maintaining sinus rhythm. Review of systems: Rest review of systems negative. Medications: Medications have been reviewed. Reason For Visit: ACUTE/CHRONIC CHF, HYPOMAGNESEMIA Physical Exam Vital Signs: Temp Pulse Resp BP Pulse Ox 97.4 F 108 H 12 131/75 H 97 01/04/18 03:31 01/04/18 08:00 01/04/18 04:00 01/04/18 03:31 01/04/18 08:00 Intake & Output 01/03/18 01/04/18 01/05/18 06:59 06:59 06:59 Intake Total 60 145 Output Total 3200 4225 400 Balance -3140 -4080 -400 Weight 77.8 kg 62.6 kg Exam: GENERAL: well-nourished and in no acute distress. Alert and oriented x3 HEAD: Atraumatic, normocephalic. EYES: Pupils equal round and reactive to light, extraocular movements intact, sclera anicteric, conjunctiva are normal. ENT: TMs normal, nares patent, oropharynx clear without exudates. Moist mucous membranes. No oral ulcerations or bleeding gums noted NECK: supple without lymphadenopathy. Trachea is central. No cervical or axillary lymphadenopathy noted. Carotids are 2+, JVD 8-10 cm LUNGS: Respiration seems nonlabored, no significant accessory muscle action noted. Bilateral coarse crackles and mild scattered wheezes rales or rhonchi noted. No significant dullness noted on percussion. CHEST: Palpation of the chest wall shows no significant chest wall tenderness. No other significant abnormalities noted. 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 ABDOMEN: Soft, no significant tenderness appreciated, normoactive bowel sounds. No guarding, no rebound. No rigidity noted . No masses appreciated. EXTREMITIES: Pedal pulses are 1-2+, no calf tenderness noted. No clubbing or cyanosis. 1+ pedal edema noted NEUROLOGICAL: Focused neurological exam showed no significant neurologic deficit. Normal speech, no focal weakness appreciated. PSYCH: Normal mood, normal affect. Judgment and insight within normal limits. SKIN: No significant ecchymosis, rash, ulcerations or signs of pruritus noted. MUSCULOSKELETAL EXAM: No significant joint swelling noted. Results Laboratory Results: 01/03/18 08:59 01/03/18 03:49 12/30/17 12/31/17 12/31/17 19:25 01:23 07:20 Troponin I 0.048 0.057 0.063 NT-Pro-B Natriuret Pep 01/03/18 03:49 Troponin I NT-Pro-B Natriuret Pep 62646 H EKG Comments: Telemetry shows sinus rhythm without any sustained tacky or bradycardia arrhythmia in the last 24 hours. Impressions: Chest CT 12/30/17 16:49 IMPRESSION: Bilateral pleural effusions -moderate on the right and small on the left. . Bronchiectatic change anteriorly right lung. Cardiomegaly. Mild aneurysmal change ascending aorta. Head CT 12/30/17 16:49 IMPRESSION: No acute intracranial pathology. Possible focal soft tissue swelling left parietal region. EVIDENCE OF ACUTE STROKE: NO. Chest X-Ray 01/03/18 14:27 IMPRESSION: Slightly increased volume of a right-sided pleural effusion; stable left pleural effusion. No new focal consolidation or pneumothorax. Assessment & Plan - Diagnosis (1) Acute on chronic congestive heart failure Qualifiers: Heart failure type: combined systolic and diastolic Qualified Code(s): I50.43 - Acute on chronic combined systolic (congestive) and diastolic ( congestive) heart failure Is this a current diagnosis for this admission?: Yes (2) Atrial fibrillation Qualifiers: Atrial fibrillation type: unspecified Qualified Code(s): I48.91 - Unspecified atrial fibrillation Is this a current diagnosis for this admission?: Yes (3) CAD (coronary artery disease) Qualifiers: Coronary Disease-Associated Artery/Lesion type: [place] artery [place] vs. 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: without half-way use Qualified Code(s): E11.8 - Type 2 diabetes mellitus with unspecified complications Is this a current diagnosis for this admission?: Yes (6) Falls Qualifiers: Encounter type: subsequent encounter Qualified Code(s): W19.XXXD - Unspecified fall, subsequent encounter Is this a current diagnosis for this admission?: Yes (7) Hypomagnesemia Is this a current diagnosis for this admission?: Yes (9) Unsteady gait Is this a current diagnosis for this admission?: Yes (10) COPD (chronic obstructive pulmonary disease) Qualifiers: COPD type: COPD with acute exacerbation Qualified Code(s): J44.1 - Chronic obstructive pulmonary disease with (acute) exacerbation Is this a current diagnosis for this admission?: Yes (11) Respiratory failure Qualifiers: Chronicity: acute on chronic Respiratory failure complication: hypoxia and hypercapnia Qualified Code(s): J96.21 - Acute and chronic respiratory failure with hypoxia; J96.22 - Acute and chronic respiratory failure with hypercapnia; J96.22 - Acute and chronic respiratory failure with hypercapnia; J96.22 - Acute and chronic respiratory failure with hypercapnia Is this a current diagnosis for this admission?: Yes - Notes Notes: Medication review shows that patient not on any chronic anticoagulation. At this point will recommend Eliquis at 2.5 mg p.o. twice daily given his age and generally thin built. COPD: Patient noted to have acute exacerbation with significant retention of CO2 and hypoxemia. Patient now noted to be DNR. He has a living will. Currently on bilevel therapy overnight. Shown improvement in PCO2. Patient seems to have underlying severe COPD. Continue bronchodilator, antibiotic and steroid treatment as needed. Respiratory failure acute on chronic: Patient noted to have chronic COPD. Chest x-ray reviewed showed cardiomegaly. There is elevated right hemidiaphragm. Probable minimal CHF as some fluid is noted in the horizontal fissure. Acute on chronic congestive heart failure: Continue diuretic therapy. 2D echo shows combined systolic and diastolic as well as biventricular heart failure acute on chronic. Continue current therapeutic regimen. Atrial fibrillation: Recommend chronic anticoagulation given high chads score. Patient does have history of fall, patient will also benefit from physical therapy assessment and advice regarding prevention of fall by physical therapist. Continue patient on chronic anticoagulation. Coronary artery disease: Patient status post coronary artery bypass graft surgery. At this time in the absence of chest pain and other significant comorbid diagnosis and also underlying dementia, do not feel patient would be a candidate for invasive workup in the absence of significant anginal symptoms. Diabetes: Recommend good control of diabetes but avoid any hyper or hypoglycemia. History of fall: Recommend physical therapy. Pitting edema: Part of CHF. Patient could have associated venous insufficiency. This is gradually improving. Recommend support stockings and keeping legs elevated when feasible. - Time Time with patient: Greater than 35 minutes - CODE STATUS : was discussed, patient remains DO NOT RESUSCITATE. Surrogate decision-maker unchanged. Multiple medical problems were addressed. More than 50% of the time spent coordinating care, discussing management plans with involved caregivers. Management plans discussed with involved personnels. Medical decision making was of moderate to high complexity, patient's has multiple comorbidities. Medications reviewed and adjusted accordingly: Yes
[2018-01-04] MEDS ORDERED: APIXABAN 2.5 MG TABLET PO ONE (13:00)
[2018-01-04] MEDS ORDERED: APIXABAN 2.5 MG TABLET PO SCH (18:00)
[2018-01-04] MEDS: ATORVASTATIN CALCIUM 80 MG TABLET PO SCH (23:06)
[2018-01-04] MEDS: APIXABAN 2.5 MG TABLET PO SCH (23:07)
[2018-01-05 05:30] LABS: BLOOD UREA NITROGEN 26 mg/dL (7-20); CALCIUM 8.6 mg/dL (8.4-10.2); CHLORIDE 89 mmol/L (98-107); GLUCOSE 116 mg/dL (75-110); POTASSIUM 3.2 mmol/L (3.6-5.0); SODIUM 142.2 mmol/L (137-145)
[2018-01-05 05:35] LABS: ABSOLUTE EOSINOPHILS # (AUTO) 0.4 10^3/uL (0.0-0.6); ABSOLUTE MONOCYTES (AUTO) 0.6 10^3/uL (0.1-1.4); ABSOLUTE NEUT (AUTO) 3.4 10^3/uL (1.7-8.2); BASOPHILS % (AUTO) 0.9 % (0-2); EOSINOPHILS % (AUTO) 6.8 % (0-6); HEMATOCRIT 40.2 % (37.9-51.0); HEMOGLOBIN 12.4 g/dL (13.5-17.0); LYMPHOCYTES % (AUTO) 18.6 % (13-45); MEAN CORPUSCULAR HGB CONC 30.9 g/dL (32.0-36.0); MEAN CORPUSCULAR VOLUME 71 fl (80-97); MONOCYTES % (AUTO) 10.5 % (3-13); RED BLOOD COUNT 5.65 10^6/uL (4.35-5.55); RED CELL DISTRIBUTION WIDTH 29.2 % (11.5-14.0); SEGMENTED NEUTROPHILS % (AUTO) 63.2 % (42-78); TOTAL CELLS COUNTED % (AUTO) 100 %; WHITE BLOOD COUNT 5.4 10^3/uL (4.0-10.5)
[2018-01-05 05:43] LABS: ANION GAP 7 (5-19)
[2018-01-05 06:05] LABS: PLATELET COUNT 90 10^3/uL (150-450)
[2018-01-05 06:24] LABS: CARBON DIOXIDE 46 mmol/L (22-30)
[2018-01-05 06:29] LABS: ANISOCYTOSIS 2+; POIKILOCYTOSIS 1+
[2018-01-05] MEDS: LANSOPRAZOLE 30 MG TAB.RAP.DR PO SCH (06:29)
[2018-01-05 06:30] LABS: HYPOCHROMASIA 1+; OVALOCYTES 1+; PLATELET COMMENT DECREASED; PLATELET LARGE PRESENT; POLYCHROMASIA SLIGHT; SCHISTOCYTES SLIGHT; TOXIC GRANULATION 1+
[2018-01-05] MEDS: PREGABALIN 75 MG CAPSULE PO SCH ×3 (06:32→22:17)
[2018-01-05 07:04] LABS: ARTERIAL BLOOD BASE EXCESS 19.7 mmol/L; ARTERIAL BLOOD FIO2 2L; ARTERIAL BLOOD H2CO3 2.42 mmol/L (1.05-1.35); ARTERIAL BLOOD HCO3 48.7 mmol/L (20-26); ARTERIAL BLOOD PO2 52.4 mmHg (80-100); ARTERIAL BLOOD TOTAL CO2 51.2 mmol/L (23-27)
[2018-01-05 07:06] LABS: ARTERIAL BLOOD PCO2 80.3 mmHg (35-45)
--- NOTE | 2018-01-05 09:17 | EKG REPORT ---
SEVERITY:- ABNORMAL ECG - SINUS RHYTHM SUPRAVENTRICULAR BIGEMINY RBBB AND LAFB LATERAL INJURY, PROBABLE EARLY ACUTE INFARCT : Confirmed by: Avery Cummins 05-Jan-2018 09:16:34
[2018-01-05] MEDS: PANTOPRAZOLE SODIUM 40 MG VIAL IV SCH ×2 (11:45→22:17)
[2018-01-05] MEDS: RANOLAZINE 500 MG TAB.SR.12H PO SCH ×2 (11:49→22:17)
[2018-01-05] MEDS: SPIRONOLACTONE 25 MG TABLET PO SCH (11:49)
[2018-01-05] MEDS: DULOXETINE HCL 30 MG CAPSULE.DR PO SCH (11:49)
[2018-01-05] MEDS: FERROUS SULFATE 325 MG TABLET PO SCH (11:50)
[2018-01-05] MEDS: TOBRAMYCIN SULFATE/DEXAMETH OPH SUSP 2.5 ML OU SCH ×2 (11:50→17:21)
[2018-01-05] MEDS: MEMANTINE HCL 10 MG TABLET PO SCH (11:50)
[2018-01-05] MEDS: TORSEMIDE 20 MG TABLET PO SCH (11:50)
[2018-01-05] MEDS: APIXABAN 2.5 MG TABLET PO SCH ×2 (11:53→22:17)
[2018-01-05 12:17] LABS: TROPONIN I 0.083 ng/mL
--- NOTE | 2018-01-05 14:53 | PDOC PROGRESS REPORT ---
Subjective Progress Note for:: 01/05/18 Subjective:: Awake and interactive at this time. Used BiPAP overnight. Heart rate better controlle. No chest pain or palpitations, fever or chills, shortness of breath improved. Reason For Visit: ACUTE/CHRONIC CHF, HYPOMAGNESEMIA Physical Exam Vital Signs: Temp Pulse Resp BP Pulse Ox 97.6 F 77 20 97/44 L 88 L 01/05/18 07:22 01/05/18 07:22 01/05/18 07:22 01/05/18 07:22 01/05/18 07:22 Intake & Output 01/04/18 01/05/18 01/06/18 06:59 06:59 06:59 Intake Total 145 261 Output Total 4225 1900 Balance -4080 -1639 Weight 62.6 kg 66.1 kg GEN: Elderly male, NAD, well-developed CV: RRR, NL S1S2, 2/6 CHUCK aortic area, 1/6 farmer systolic murmur mitral area LUNGS: Decreased breath sounds with fine scattered wheezes and basilar crackles bilaterally ABDOMEN Soft, NT, +BS EXTERMITIES: 1+ pedal edema, no clubbing or cyanosis NEURO: Alert, oriented to name and place, has generalized weakness but no focal weakness Results Laboratory Results: 01/05/18 04:09 01/05/18 04:09 01/05/18 01/05/18 01/05/18 04:09 04:09 06:50 WBC 5.4 RBC 5.65 H Hgb 12.4 L Hct 40.2 MCV 71 L MCH 22.0 L MCHC 30.9 L RDW 29.2 H Plt Count 90 L Seg Neutrophils % 63.2 Lymphocytes % 18.6 Monocytes % 10.5 Eosinophils % 6.8 H Basophils % 0.9 Absolute Neutrophils 3.4 Absolute Lymphocytes 1.0 Absolute Monocytes 0.6 Absolute Eosinophils 0.4 Absolute Basophils 0.0 Carbonic Acid 2.42 H HCO3/H2CO3 Ratio 20:1 ABG pH 7.40 ABG pCO2 80.3 H* ABG pO2 52.4 L ABG HCO3 48.7 H ABG O2 Saturation 85.0 L ABG Base Excess 19.7 FiO2 2L Sodium 142.2 Potassium 3.2 L Chloride 89 L Carbon Dioxide 46 H* Anion Gap 7 BUN 26 H Creatinine 0.79 Est GFR ( Amer) > 60 Est GFR (Non-Af Amer) > 60 Glucose 116 H Calcium 8.6 Magnesium 1.5 L 12/30/17 12/31/17 12/31/17 19:25 01:23 07:20 Troponin I 0.048 0.057 0.063 NT-Pro-B Natriuret Pep 01/03/18 01/05/18 03:49 11:19 Troponin I 0.083 NT-Pro-B Natriuret Pep 56283 H 8100 H Impressions: Chest CT 12/30/17 16:49 IMPRESSION: Bilateral pleural effusions -moderate on the right and small on the left. . Bronchiectatic change anteriorly right lung. Cardiomegaly. Mild aneurysmal change ascending aorta. Head CT 12/30/17 16:49 IMPRESSION: No acute intracranial pathology. Possible focal soft tissue swelling left parietal region. EVIDENCE OF ACUTE STROKE: NO. Chest X-Ray 01/03/18 14:27 IMPRESSION: Slightly increased volume of a right-sided pleural effusion; stable left pleural effusion. No new focal consolidation or pneumothorax. Assessment & Plan - Diagnosis (1) Altered mental status Qualifiers: Altered mental status type: stupor Qualified Code(s): R40.1 - Stupor Is this a current diagnosis for this admission?: Yes Plan: Suspect secondary to CO2 retention. Improved with BiPAP. Continue BiPAP as needed. Patient is DNR, so no intubation. Improved right now in any case. (2) Acute on chronic congestive heart failure Qualifiers: Heart failure type: combined systolic and diastolic Qualified Code(s): I50.43 - Acute on chronic combined systolic (congestive) and diastolic ( congestive) heart failure Is this a current diagnosis for this admission?: Yes Plan: Echo reveals EF 30-45%, grade 2/mild to moderate diastolic dysfunction. Now off Lasix 40 mg IV, continue torsemide and spironolactone per cardiology recommendation. Patient apparently with unknown allergy to lisinopril, so Entresto not used. Replete potassium and magnesium, F/u BMP in a.m. (3) Atrial fibrillation Qualifiers: Atrial fibrillation type: unspecified Qualified Code(s): I48.91 - Unspecified atrial fibrillation Is this a current diagnosis for this admission?: Yes Plan: Currently rate controlled. Placed on Eliquis 5 mg p.o. twice daily by Dr. Cummins on 12/31/17, but was discontinued due to hematuria. Patient currently without hematuria off Eliquis, will restart at 2.5 mg twice daily. Continue falls precautions. Continue Metoprolol XL at 25 mg daily as rate better on this dose. (4) CAD (coronary artery disease) Qualifiers: Coronary Disease-Associated Artery/Lesion type: [place] artery [place] vs. 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 Plan for rehab. (7) Hypomagnesemia Is this a current diagnosis for this admission?: Yes Plan: Magnesium yesterday 1.4. Magnesium 2 g given IV. Follow-up magnesium level. (8) Unsteady gait Is this a current diagnosis for this admission?: Yes Plan: PT following. Plan for rehab. (9) COPD (chronic obstructive pulmonary disease) Is this a current diagnosis for this admission?: Yes Plan: Patient with CO2 retention treated with BiPAP and altered mental status has improved at this time. We will continue with BiPAP as needed We will continue with nebulizers as needed Continue to follow-up mental status; repeat ABG as needed.
[2018-01-05] MEDS ORDERED: MAGNESIUM OXIDE 400 MG TABLET PO ONE (16:00)
[2018-01-05] MEDS ORDERED: POTASSIUM CHLORIDE 20 MEQ/15 ML UDCUP PO ONE (16:00)
[2018-01-05 17:17] LABS: APPEARANCE,URINE CLEAR; BILIRUBIN,URINE NEGATIVE (NEGATIVE); COLOR,URINE STRAW; GLUCOSE, URINE NEGATIVE (NEGATIVE); KETONES,URINE NEGATIVE (NEGATIVE); LEUKOCYTE ESTERASE,URINE NEGATIVE (NEGATIVE); NITRITE,URINE NEGATIVE (NEGATIVE); PROTEIN,URINE NEGATIVE (NEGATIVE); URINE SPECIFIC GRAVITY 1.005; UROBILINOGEN,URINE NEGATIVE mg/dL (<2.0)
--- NOTE | 2018-01-05 19:15 | PDOC PROGRESS REPORT ---
Subjective Progress Note for:: 01/05/18 Subjective:: Patient better today. More alert. Patient noted to be sitting up in bed and eating breakfast by himself. Pt is denying any chest arm or neck discomfort. Patient denying any PND, orthopnea. Patient denied any sustained palpitations, dizziness, syncope, near syncope. Patient denying any fever chills. Patient denying any other significant discomfort. Patient still has shortness of breath on mild exertion and some pedal edema. Patient is maintaining sinus rhythm. Review of systems: Rest review of systems negative. Medications: Medications have been reviewed. Reason For Visit: ACUTE/CHRONIC CHF, HYPOMAGNESEMIA Physical Exam Vital Signs: Temp Pulse Resp BP Pulse Ox 97.6 F 77 20 97/44 L 88 L 01/05/18 07:22 01/05/18 07:22 01/05/18 07:22 01/05/18 07:22 01/05/18 07:22 Intake & Output 01/04/18 01/05/18 01/06/18 06:59 06:59 06:59 Intake Total 145 261 Output Total 4225 1900 Balance -4080 -1639 Weight 62.6 kg 66.1 kg Exam: GENERAL: well-nourished and in no acute distress. Alert and oriented x3 HEAD: Atraumatic, normocephalic. EYES: Pupils equal round and reactive to light, extraocular movements intact, sclera anicteric, conjunctiva are normal. ENT: TMs normal, nares patent, oropharynx clear without exudates. Moist mucous membranes. No oral ulcerations or bleeding gums noted NECK: supple without lymphadenopathy. Trachea is central. No cervical or axillary lymphadenopathy noted. Carotids are 2+, JVD 8 cm LUNGS: Respiration seems nonlabored, no significant accessory muscle action noted. Bibasilar coarse crackles and mild scattered wheezing noted CHEST: Palpation of the chest wall shows no significant chest wall tenderness. No other significant abnormalities noted. 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 ABDOMEN: Soft, no significant tenderness appreciated, normoactive bowel sounds. No guarding, no rebound. No rigidity noted . No masses appreciated. EXTREMITIES: Pedal pulses are 1-2+, no calf tenderness noted. No clubbing or cyanosis. 1-2 + pedal edema noted NEUROLOGICAL: Focused neurological exam showed no significant neurologic deficit. Normal speech, no focal weakness appreciated. PSYCH: Normal mood, normal affect. Judgment and insight within normal limits. SKIN: No significant ecchymosis, skin is noted to be warm. MUSCULOSKELETAL EXAM: No significant acute joint swelling noted. Results Laboratory Results: 01/05/18 04:09 01/05/18 04:09 01/05/18 01/05/18 01/05/18 04:09 04:09 06:50 WBC 5.4 RBC 5.65 H Hgb 12.4 L Hct 40.2 MCV 71 L MCH 22.0 L MCHC 30.9 L RDW 29.2 H Plt Count 90 L Seg Neutrophils % 63.2 Lymphocytes % 18.6 Monocytes % 10.5 Eosinophils % 6.8 H Basophils % 0.9 Absolute Neutrophils 3.4 Absolute Lymphocytes 1.0 Absolute Monocytes 0.6 Absolute Eosinophils 0.4 Absolute Basophils 0.0 Carbonic Acid 2.42 H HCO3/H2CO3 Ratio 20:1 ABG pH 7.40 ABG pCO2 80.3 H* ABG pO2 52.4 L ABG HCO3 48.7 H ABG O2 Saturation 85.0 L ABG Base Excess 19.7 FiO2 2L Sodium 142.2 Potassium 3.2 L Chloride 89 L Carbon Dioxide 46 H* Anion Gap 7 BUN 26 H Creatinine 0.79 Est GFR ( Amer) > 60 Est GFR (Non-Af Amer) > 60 Glucose 116 H Calcium 8.6 Magnesium 1.5 L 12/30/17 12/31/17 12/31/17 19:25 01:23 07:20 Troponin I 0.048 0.057 0.063 NT-Pro-B Natriuret Pep 01/03/18 03:49 Troponin I NT-Pro-B Natriuret Pep 39650 H EKG Comments: Twelve-lead EKG shows sinus rhythm with ST-T changes lateral chest leads indicative of acute SD, lateral wall. Impressions: Chest CT 12/30/17 16:49 IMPRESSION: Bilateral pleural effusions -moderate on the right and small on the left. . Bronchiectatic change anteriorly right lung. Cardiomegaly. Mild aneurysmal change ascending aorta. Head CT 12/30/17 16:49 IMPRESSION: No acute intracranial pathology. Possible focal soft tissue swelling left parietal region. EVIDENCE OF ACUTE STROKE: NO. Chest X-Ray 01/03/18 14:27 IMPRESSION: Slightly increased volume of a right-sided pleural effusion; stable left pleural effusion. No new focal consolidation or pneumothorax. Assessment & Plan - Diagnosis (1) Acute on chronic congestive heart failure Qualifiers: Heart failure type: combined systolic and diastolic Qualified Code(s): I50.43 - Acute on chronic combined systolic (congestive) and diastolic ( congestive) heart failure Is this a current diagnosis for this admission?: Yes (2) Atrial fibrillation Qualifiers: Atrial fibrillation type: unspecified Qualified Code(s): I48.91 - Unspecified atrial fibrillation Is this a current diagnosis for this admission?: Yes (3) CAD (coronary artery disease) Qualifiers: Coronary Disease-Associated Artery/Lesion type: [place] artery [place] vs. 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 insulin use: without chcf use Qualified Code(s): E11.8 - Type 2 diabetes mellitus with unspecified complications Is this a current diagnosis for this admission?: Yes (6) Falls Qualifiers: Encounter type: subsequent encounter Qualified Code(s): W19.XXXD - Unspecified fall, subsequent encounter Is this a current diagnosis for this admission?: Yes (7) Hypomagnesemia Is this a current diagnosis for this admission?: Yes (9) Unsteady gait Is this a current diagnosis for this admission?: Yes (10) COPD (chronic obstructive pulmonary disease) Qualifiers: COPD type: COPD with acute exacerbation Qualified Code(s): J44.1 - Chronic obstructive pulmonary disease with (acute) exacerbation Is this a current diagnosis for this admission?: Yes (11) Respiratory failure Qualifiers: Chronicity: acute on chronic Respiratory failure complication: hypoxia and hypercapnia Qualified Code(s): J96.21 - Acute and chronic respiratory failure with hypoxia; J96.22 - Acute and chronic respiratory failure with hypercapnia; J96.22 - Acute and chronic respiratory failure with hypercapnia; J96.22 - Acute and chronic respiratory failure with hypercapnia Is this a current diagnosis for this admission?: Yes - Notes Notes: EKG reviewed. Possible new changes. CXR reviewed. Check troponin I, BNP. Will increase demadex if needed. Troponin I showed little bump from before probably related to severe respiratory failure and CHF rather than ACS. BNP level has come down somewhat. No need to escalate diuretic therapy at this point. However will continue to follow. COPD: Patient noted to have acute exacerbation with significant retention of CO2 and hypoxemia. Patient now noted to be DNR. He has a living will. Currently on bilevel therapy overnight. Shown improvement in PCO2. Patient seems to have underlying severe COPD. Continue bronchodilator, antibiotic and steroid treatment as needed. Respiratory failure acute on chronic: Patient noted to have chronic COPD. Chest x-ray reviewed showed cardiomegaly. There is elevated right hemidiaphragm. Probable minimal CHF as some fluid is noted in the horizontal fissure. Acute on chronic congestive heart failure: Continue diuretic therapy. 2D echo shows combined systolic and diastolic as well as biventricular heart failure acute on chronic. Continue current therapeutic regimen. Atrial fibrillation: Recommend chronic anticoagulation given high chads score. Patient does have history of fall, patient will also benefit from physical therapy assessment and advice regarding prevention of fall by physical therapist. Continue patient on chronic anticoagulation. Coronary artery disease: Patient status post coronary artery bypass graft surgery. At this time in the absence of chest pain and other significant comorbid diagnosis and also underlying dementia, do not feel patient would be a candidate for invasive workup in the absence of significant anginal symptoms. Diabetes: Recommend good control of diabetes but avoid any hyper or hypoglycemia. History of fall: Recommend physical therapy. Pitting edema: Part of CHF. Patient could have associated venous insufficiency. This is gradually improving. Recommend support stockings and keeping legs elevated when feasible. - Time Time with patient: Greater than 35 minutes - CODE STATUS : was discussed, patient remains DO NOT RESUSCITATE. Surrogate decision-maker unchanged. Multiple medical problems were addressed. More than 50% of the time spent coordinating care, discussing management plans with involved caregivers. Management plans discussed with involved personnels. Medical decision making was of moderate to high complexity, patient's has multiple comorbidities.
[2018-01-05] MEDS: METOPROLOL SUCCINATE 25 MG TAB.SR.24H PO SCH (22:17)
[2018-01-05] MEDS: ATORVASTATIN CALCIUM 80 MG TABLET PO SCH (22:17)
[2018-01-06 05:18] LABS: ABSOLUTE BASOPHILS # (AUTO) 0.1 10^3/uL (0.0-0.2); ABSOLUTE EOSINOPHILS # (AUTO) 0.4 10^3/uL (0.0-0.6); ABSOLUTE LYMPHOCYTES (AUTO) 1.2 10^3/uL (0.5-4.7); ABSOLUTE MONOCYTES (AUTO) 0.7 10^3/uL (0.1-1.4); ABSOLUTE NEUT (AUTO) 3.8 10^3/uL (1.7-8.2); EOSINOPHILS % (AUTO) 6.8 % (0-6); HEMATOCRIT 42.8 % (37.9-51.0); HEMOGLOBIN 12.9 g/dL (13.5-17.0); LYMPHOCYTES % (AUTO) 19.9 % (13-45); MEAN CORPUSCULAR HEMOGLOBIN 21.9 pg (27.0-33.4); MEAN CORPUSCULAR HGB CONC 30.2 g/dL (32.0-36.0); MEAN CORPUSCULAR VOLUME 72 fl (80-97); MONOCYTES % (AUTO) 11.1 % (3-13); PLATELET COUNT 113 10^3/uL (150-450); RED BLOOD COUNT 5.91 10^6/uL (4.35-5.55); RED CELL DISTRIBUTION WIDTH 28.5 % (11.5-14.0); SEGMENTED NEUTROPHILS % (AUTO) 61.2 % (42-78); TOTAL CELLS COUNTED % (AUTO) 100 %; WHITE BLOOD COUNT 6.1 10^3/uL (4.0-10.5)
[2018-01-06 05:31] LABS: BLOOD UREA NITROGEN 26 mg/dL (7-20); CALCIUM 8.6 mg/dL (8.4-10.2); CHLORIDE 86 mmol/L (98-107); GLUCOSE 121 mg/dL (75-110); POTASSIUM 3.6 mmol/L (3.6-5.0); SODIUM 143.9 mmol/L (137-145)
[2018-01-06 05:50] LABS: ANISOCYTOSIS 4+; OVALOCYTES 2+; PLATELET COMMENT ADEQUATE; PLATELET LARGE PRESENT; SCHISTOCYTES 2+; TOXIC GRANULATION 1+
[2018-01-06 05:51] LABS: ANION GAP 8 (5-19)
[2018-01-06 05:53] LABS: CARBON DIOXIDE 50 mmol/L (22-30)
[2018-01-06] MEDS: PREGABALIN 75 MG CAPSULE PO SCH ×3 (05:53→23:33)
[2018-01-06] MEDS: PANTOPRAZOLE SODIUM 40 MG VIAL IV SCH ×2 (11:23→23:34)
[2018-01-06] MEDS: MEMANTINE HCL 10 MG TABLET PO SCH (11:24)
--- NOTE | 2018-01-06 11:24 | PDOC PROGRESS REPORT ---
Subjective Progress Note for:: 01/06/18 Subjective:: Today on rounds patient noted to be lethargic and wearing bilevel therapy. Pt is denying any chest arm or neck discomfort. Patient denying any PND, orthopnea. Patient denied any sustained palpitations, dizziness, syncope, near syncope. Patient denying any fever chills. Patient denying any other significant discomfort. Patient still has shortness of breath on mild exertion and some pedal edema. Patient is maintaining sinus rhythm. Frequent APCs noted. Review of systems: Rest review of systems negative. Medications: Medications have been reviewed. Reason For Visit: ACUTE/CHRONIC CHF, HYPOMAGNESEMIA Physical Exam Vital Signs: Temp Pulse Resp BP Pulse Ox 97.6 F 90 16 105/80 89 L 01/06/18 07:11 01/06/18 07:11 01/06/18 08:15 01/06/18 07:11 01/06/18 07:11 Intake & Output 01/05/18 01/06/18 01/07/18 06:59 06:59 06:59 Intake Total 261 962 Output Total 1900 2650 Balance -1639 -1688 Weight 66.1 kg 65.3 kg Exam: GENERAL: well-nourished and in no acute distress. Patient is alert but lethargic. HEAD: Atraumatic, normocephalic. EYES: Pupils equal round and reactive to light, extraocular movements intact, sclera anicteric, conjunctiva are normal. ENT: TMs normal, nares patent, oropharynx clear without exudates. Moist mucous membranes. No oral ulcerations or bleeding gums noted NECK: supple without lymphadenopathy or JVD. Trachea is central. No cervical or axillary lymphadenopathy noted. Carotids are 2+ LUNGS: Breath sounds bibasilar fine crackles at bases. No significant dullness noted. CHEST: Palpation of chest wall shows no significant chest wall tenderness. 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 ABDOMEN: Soft, no significant tenderness appreciated, normoactive bowel sounds. No guarding, no rebound. No rigidity noted . No masses appreciated. EXTREMITIES: Pedal pulses are 1-2+, no calf tenderness noted, Trace + pedal edema noted. No clubbing or cyanosis. NEUROLOGICAL: Patient is alert but is not able to participate in neurological exam because of patient's current mental status PSYCH: Patient cannot participate in a neurologic and psych exam because of the patient's current mental status SKIN: No significant ecchymosis, rash, ulcerations or signs of pruritus noted. MUSCULOSKELETAL EXAM: No significant joint swelling noted. Results Laboratory Results: 01/06/18 04:16 01/06/18 04:16 01/05/18 01/06/18 01/06/18 16:55 04:16 04:16 WBC 6.1 RBC 5.91 H Hgb 12.9 L Hct 42.8 MCV 72 L MCH 21.9 L MCHC 30.2 L RDW 28.5 H Plt Count 113 L Seg Neutrophils % 61.2 Lymphocytes % 19.9 Monocytes % 11.1 Eosinophils % 6.8 H Basophils % 1.0 Absolute Neutrophils 3.8 Absolute Lymphocytes 1.2 Absolute Monocytes 0.7 Absolute Eosinophils 0.4 Absolute Basophils 0.1 Sodium 143.9 Potassium 3.6 Chloride 86 L Carbon Dioxide 50 H* Anion Gap 8 BUN 26 H Creatinine 0.88 Est GFR ( Amer) > 60 Est GFR (Non-Af Amer) > 60 Glucose 121 H Calcium 8.6 Urine Color STRAW Urine Appearance CLEAR Urine pH 5.0 Ur Specific Bee 1.005 Urine Protein NEGATIVE Urine Glucose (UA) NEGATIVE Urine Ketones NEGATIVE Urine Blood MODERATE H Urine Nitrite NEGATIVE Ur Leukocyte Esterase NEGATIVE Urine WBC (Auto) 1 Urine RBC (Auto) 16 12/30/17 12/31/17 12/31/17 19:25 01:23 07:20 Troponin I 0.048 0.057 0.063 NT-Pro-B Natriuret Pep 01/03/18 01/05/18 03:49 11:19 Troponin I 0.083 NT-Pro-B Natriuret Pep 86368 H 8100 H Impressions: Chest CT 12/30/17 16:49 IMPRESSION: Bilateral pleural effusions -moderate on the right and small on the left. . Bronchiectatic change anteriorly right lung. Cardiomegaly. Mild aneurysmal change ascending aorta. Head CT 12/30/17 16:49 IMPRESSION: No acute intracranial pathology. Possible focal soft tissue swelling left parietal region. EVIDENCE OF ACUTE STROKE: NO. Chest X-Ray 01/03/18 14:27 IMPRESSION: Slightly increased volume of a right-sided pleural effusion; stable left pleural effusion. No new focal consolidation or pneumothorax. 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 transplanted heart: [place] heart Associated angina: angina presence unspecified Qualified Code(s): I25.10 - Atherosclerotic heart disease of [place] coronary artery without angina pectoris Is this a current diagnosis for this admission?: Yes (4) CHF (congestive heart failure) Qualifiers: Heart failure type: unspecified Heart failure chronicity: unspecified Qualified Code(s): I50.9 - Heart failure, unspecified Is this a current diagnosis for this admission?: Yes (5) Diabetes Qualifiers: Diabetes mellitus type: type 2 Diabetes mellitus complication status: with unspecified complications Diabetes mellitus laborer marine terminal insulin use: without laborer marine terminal use Qualified Code(s): E11.8 - Type 2 diabetes mellitus with unspecified complications Is this a current diagnosis for this admission?: Yes (6) Falls Qualifiers: Encounter type: subsequent encounter Qualified Code(s): W19.XXXD - Unspecified fall, subsequent encounter Is this a current diagnosis for this admission?: Yes (7) Hypomagnesemia Is this a current diagnosis for this admission?: Yes (9) Unsteady gait Is this a current diagnosis for this admission?: Yes (10) COPD (chronic obstructive pulmonary disease) Qualifiers: COPD type: COPD with acute exacerbation Qualified Code(s): J44.1 - Chronic obstructive pulmonary disease with (acute) exacerbation Is this a current diagnosis for this admission?: Yes (11) Respiratory failure Qualifiers: Chronicity: acute on chronic Respiratory failure complication: hypoxia and hypercapnia Qualified Code(s): J96.21 - Acute and chronic respiratory failure with hypoxia; J96.22 - Acute and chronic respiratory failure with hypercapnia; J96.22 - Acute and chronic respiratory failure with hypercapnia; J96.22 - Acute and chronic respiratory failure with hypercapnia Is this a current diagnosis for this admission?: Yes - Notes Notes: Patient has increasing bicarb in the blood. Possible increasing CO2 retention. Continue bilevel therapy. Have added Diamox. Consider pulmonary consultation. COPD: Patient noted to have acute exacerbation with significant retention of CO2 and hypoxemia. Patient now noted to be DNR. He has a living will. Currently on bilevel therapy overnight. Shown improvement in PCO2. Patient seems to have underlying severe COPD. Continue bronchodilator, antibiotic and steroid treatment as needed. Respiratory failure acute on chronic: Patient noted to have chronic COPD. Chest x-ray reviewed showed cardiomegaly. There is elevated right hemidiaphragm. Probable minimal CHF as some fluid is noted in the horizontal fissure. Acute on chronic congestive heart failure: Continue diuretic therapy. 2D echo shows combined systolic and diastolic as well as biventricular heart failure acute on chronic. Continue current therapeutic regimen. Atrial fibrillation: Recommend chronic anticoagulation given high chads score. Patient does have history of fall, patient will also benefit from physical therapy assessment and advice regarding prevention of fall by physical therapist. Continue patient on chronic anticoagulation. Coronary artery disease: Patient status post coronary artery bypass graft surgery. At this time in the absence of chest pain and other significant comorbid diagnosis and also underlying dementia, do not feel patient would be a candidate for invasive workup in the absence of significant anginal symptoms. Diabetes: Recommend good control of diabetes but avoid any hyper or hypoglycemia. History of fall: Recommend physical therapy. Pitting edema: Part of CHF. Patient could have associated venous insufficiency. This is gradually improving. Recommend support stockings and keeping legs elevated when feasible. - Time Time with patient: 15-25 minutes - CODE STATUS : was discussed, patient remains DO NOT RESUSCITATE. Surrogate decision-maker unchanged. Multiple medical problems were addressed. More than 50% of the time spent coordinating care, discussing management plans with involved caregivers. Management plans discussed with involved personnels. Medical decision making was of moderate to high complexity, patient's has multiple comorbidities. Medications reviewed and adjusted accordingly: Yes
[2018-01-06] MEDS: RANOLAZINE 500 MG TAB.SR.12H PO SCH ×2 (11:25→23:33)
[2018-01-06] MEDS: METOPROLOL SUCCINATE 25 MG TAB.SR.24H PO SCH ×2 (11:25→23:33)
[2018-01-06] MEDS: MAGNESIUM OXIDE 400 MG TABLET PO SCH ×2 (11:26→17:04)
[2018-01-06] MEDS: FERROUS SULFATE 325 MG TABLET PO SCH (11:26)
[2018-01-06] MEDS: APIXABAN 2.5 MG TABLET PO SCH ×2 (11:26→23:34)
[2018-01-06] MEDS: DULOXETINE HCL 30 MG CAPSULE.DR PO SCH (11:27)
[2018-01-06] MEDS: SPIRONOLACTONE 25 MG TABLET PO SCH (11:27)
[2018-01-06] MEDS: TOBRAMYCIN SULFATE/DEXAMETH OPH SUSP 2.5 ML OU SCH ×2 (11:28→17:04)
[2018-01-06] MEDS: TORSEMIDE 20 MG TABLET PO SCH (11:34)
[2018-01-06] MEDS: INSULIN LISPRO 100 UNIT/ML 3 ML VIAL SUBCUT PRN ×2 (12:39→17:02)
[2018-01-06] MEDS ORDERED: ACETAZOLAMIDE 250 MG TABLET PO ONE (13:00)
[2018-01-06] MEDS: ATORVASTATIN CALCIUM 80 MG TABLET PO SCH (23:34)
[2018-01-07] MEDS ORDERED: FUROSEMIDE INJ/PF 20 MG/2 ML SDV IV STA (04:15)
[2018-01-07] MEDS ORDERED: ALBUTEROL SULFATE 0.083% NEB 2.5 MG/3 ML AMPUL NEB PRN (04:46)
--- NOTE | 2018-01-07 04:49 | RADIOLOGY REPORT (SQ) ---
EXAM DESCRIPTION: CHEST SINGLE VIEW CLINICAL HISTORY: oxygen desaturation COMPARISON: 01/03/2018 FINDINGS: Single frontal view of the chest. Prior median sternotomy. Left atrial clear. Cardiomegaly. Moderate left pleural effusion. Likely small right pleural effusion. Hazy bibasilar opacity. Calcified right midlung granuloma. No pneumothorax. Leads overlie the chest. Left reverse shoulder arthroplasty. Upper abdominal soft tissues are unremarkable. IMPRESSION: 1. Interval development of moderate left and small right pleural effusion with bibasilar opacities which could represent consolidation or atelectasis. 2. Cardiomegaly.
[2018-01-07 05:03] LABS: BLOOD UREA NITROGEN 30 mg/dL (7-20); CALCIUM 8.7 mg/dL (8.4-10.2); CHLORIDE 83 mmol/L (98-107); GLUCOSE 90 mg/dL (75-110); SODIUM 143.2 mmol/L (137-145)
[2018-01-07 05:12] LABS: ANION GAP 12 (5-19); CARBON DIOXIDE 48 mmol/L (22-30)
[2018-01-07 05:16] LABS: HEMATOCRIT 46.2 % (37.9-51.0); HEMOGLOBIN 13.9 g/dL (13.5-17.0); MEAN CORPUSCULAR HEMOGLOBIN 22.1 pg (27.0-33.4); MEAN CORPUSCULAR HGB CONC 30.2 g/dL (32.0-36.0); MEAN CORPUSCULAR VOLUME 73 fl (80-97); PLATELET COUNT 132 10^3/uL (150-450); RED CELL DISTRIBUTION WIDTH 27.4 % (11.5-14.0); WHITE BLOOD COUNT 8.1 10^3/uL (4.0-10.5)
[2018-01-07] MEDS: PREGABALIN 75 MG CAPSULE PO SCH (05:23)
[2018-01-07 05:25] LABS: ARTERIAL BLOOD BASE EXCESS 16.5 mmol/L; ARTERIAL BLOOD HCO3 47.1 mmol/L (20-26); ARTERIAL BLOOD O2 SATURATION 92.5 % (94-98); ARTERIAL BLOOD PH 7.34 (7.35-7.45); ARTERIAL BLOOD PO2 72.2 mmHg (80-100); ARTERIAL BLOOD TOTAL CO2 49.9 mmol/L (23-27)
[2018-01-07 05:26] LABS: ARTERIAL BLOOD FIO2 100%
[2018-01-07 05:28] LABS: ARTERIAL BLOOD PCO2 89.8 mmHg (35-45)
[2018-01-07] MEDS ORDERED: FUROSEMIDE INJ/PF 20 MG/2 ML SDV ONE (05:39)
[2018-01-07 06:32] LABS: ABSOLUTE LYMPHOCYTES# (MANUAL) 0.3 10^3/uL (0.5-4.7); ABSOLUTE MONOCYTES # (MANUAL) 0.6 10^3/uL (0.1-1.4); ABSOLUTE NEUTROPHILS# (MANUAL) 7.1 10^3/uL (1.7-8.2); BAND NEUTROPHILS % (MANUAL) 10 % (3-5); BASOPHILS % (MANUAL) 0 % (0-2); EOSINOPHILS % (MANUAL) 0 % (0-6); LYMPHOCYTES % (MANUAL) 4 % (13-45); MONOCYTES % (MANUAL) 8 % (3-13); SEGMENTED NEUTROPHILS % (MAN) 78 % (42-78); TOTAL CELLS COUNTED 100
[2018-01-07 06:33] LABS: ANISOCYTOSIS 4+; HYPOCHROMASIA 1+; OVALOCYTES SLIGHT; PLATELET COMMENT DECREASED; POIKILOCYTOSIS SLIGHT; POLYCHROMASIA SLIGHT; TEAR DROP CELLS SLIGHT; TOXIC GRANULATION 1+
[2018-01-07 08:09] LABS: INTERNATIONAL RATION (INR) 1.21; PROTHROMBIN TIME 16.1 SEC (11.4-15.4)
[2018-01-07 08:10] LABS: PARTIAL THROMBOPLASTIN TIME 36.8 SEC (23.5-35.8)
[2018-01-07] MEDS ORDERED: NORMAL SALINE 1000 ML 1,000 ML IV ONE ×2 (08:18→10:00)
--- NOTE | 2018-01-07 09:05 | EKG REPORT ---
SEVERITY:- ABNORMAL ECG - PROBABLE SINUS RHYTHM CANNOT R/O AFIB/FLUTTER ATRIAL PREMATURE COMPLEX RBBB AND LAFB ST ELEVATION, PROBABLE LATERAL INJURY : Confirmed by: Avery Cummins 07-Jan-2018 09:04:41
[2018-01-07] MEDS ORDERED: DEXTROSE 5%-WATER 250 ML with NOREPINEPHRINE BITARTRATE 4 MG IV PRN ×2 (09:31)
[2018-01-07] MEDS ORDERED: ACETAZOLAMIDE 250 MG TABLET PO SCH (10:00)
[2018-01-07] MEDS: NORMAL SALINE 1000 ML 1,000 ML IV PRN ×2 (10:09→20:05)
[2018-01-07] MEDS ORDERED: SPIRONOLACTONE 25 MG TABLET PO SCH (11:00)
[2018-01-07] MEDS ORDERED: NORMAL SALINE 500 ML IV ONE (11:30)
[2018-01-07] MEDS: MAGNESIUM OXIDE 400 MG TABLET PO SCH (11:53)
[2018-01-07] MEDS: FERROUS SULFATE 325 MG TABLET PO SCH (11:53)
[2018-01-07] MEDS: RANOLAZINE 500 MG TAB.SR.12H PO SCH (11:53)
[2018-01-07] MEDS: MEMANTINE HCL 10 MG TABLET PO SCH (11:53)
[2018-01-07] MEDS: DULOXETINE HCL 30 MG CAPSULE.DR PO SCH (11:53)
--- NOTE | 2018-01-07 12:14 | PDOC PROGRESS REPORT ---
Subjective Progress Note for:: 01/06/18 Subjective:: Patient is resting comfortably. Patient does not appear to be in distress. Reason For Visit: ACUTE/CHRONIC CHF, HYPOMAGNESEMIA Physical Exam Vital Signs: Temp Pulse Resp BP Pulse Ox 98.6 F 67 15 94/62 L 98 01/06/18 14:57 01/06/18 14:57 01/06/18 14:57 01/06/18 14:57 01/06/18 16:00 Intake & Output 01/05/18 01/06/18 01/07/18 06:59 06:59 06:59 Intake Total 261 962 420 Output Total 1900 2650 775 Balance -1639 -1688 -285 Weight 66.1 kg 65.3 kg General appearance: PRESENT: no acute distress, thin Head exam: PRESENT: normocephalic Eye exam: PRESENT: EOMI. ABSENT: scleral icterus Ear exam: PRESENT: normal external ear exam Mouth exam: PRESENT: moist Neck exam: ABSENT: carotid bruit, JVD, lymphadenopathy, thyromegaly Respiratory exam: PRESENT: clear to auscultation sohail, other - These breath sounds bilaterally. ABSENT: rales, rhonchi, wheezes Cardiovascular exam: PRESENT: RRR. ABSENT: diastolic murmur, rubs, systolic murmur Pulses: PRESENT: normal dorsalis pedis pul Vascular exam: PRESENT: normal capillary refill GI/Abdominal exam: PRESENT: normal bowel sounds, soft. ABSENT: distended, guarding, mass, organolmegaly, rebound, tenderness Rectal exam: PRESENT: deferred Gentrourinary exam: PRESENT: indwelling catheter Extremities exam: PRESENT: full ROM. ABSENT: calf tenderness, clubbing, pedal edema Neurological exam: PRESENT: other - Sleeping. ABSENT: motor sensory deficit Psychiatric exam: ABSENT: homicidal ideation, suicidal ideation Skin exam: PRESENT: dry, intact, warm. ABSENT: cyanosis, rash Results Laboratory Results: 01/06/18 04:16 01/06/18 04:16 01/06/18 01/06/18 04:16 04:16 WBC 6.1 RBC 5.91 H Hgb 12.9 L Hct 42.8 MCV 72 L MCH 21.9 L MCHC 30.2 L RDW 28.5 H Plt Count 113 L Seg Neutrophils % 61.2 Lymphocytes % 19.9 Monocytes % 11.1 Eosinophils % 6.8 H Basophils % 1.0 Absolute Neutrophils 3.8 Absolute Lymphocytes 1.2 Absolute Monocytes 0.7 Absolute Eosinophils 0.4 Absolute Basophils 0.1 Sodium 143.9 Potassium 3.6 Chloride 86 L Carbon Dioxide 50 H* Anion Gap 8 BUN 26 H Creatinine 0.88 Est GFR ( Amer) > 60 Est GFR (Non-Af Amer) > 60 Glucose 121 H Calcium 8.6 12/30/17 12/31/17 12/31/17 19:25 01:23 07:20 Troponin I 0.048 0.057 0.063 NT-Pro-B Natriuret Pep 01/03/18 01/05/18 03:49 11:19 Troponin I 0.083 NT-Pro-B Natriuret Pep 05359 H 8100 H Impressions: Chest CT 12/30/17 16:49 IMPRESSION: Bilateral pleural effusions -moderate on the right and small on the left. . Bronchiectatic change anteriorly right lung. Cardiomegaly. Mild aneurysmal change ascending aorta. Head CT 12/30/17 16:49 IMPRESSION: No acute intracranial pathology. Possible focal soft tissue swelling left parietal region. EVIDENCE OF ACUTE STROKE: NO. Chest X-Ray 01/03/18 14:27 IMPRESSION: Slightly increased volume of a right-sided pleural effusion; stable left pleural effusion. No new focal consolidation or pneumothorax. Assessment & Plan - Diagnosis (1) Acute on chronic congestive heart failure Qualifiers: Heart failure type: combined systolic and diastolic Qualified Code(s): I50.43 - Acute on chronic combined systolic (congestive) and diastolic ( congestive) heart failure Is this a current diagnosis for this admission?: Yes Plan: Patient with a EF of 30-45% with grade 2 diastolic dysfunction. Patient on torsemide, spironolactone per cardiology recommendation. Patient appears euvolemic at this time. Patient with known allergy to lisinopril therefore patient not started on Entresto. (2) Altered mental status Qualifiers: Altered mental status type: stupor Qualified Code(s): R40.1 - Stupor Is this a current diagnosis for this admission?: Yes Plan: Most likely due to CO2 retention. Patient is a DNR and family does not want him intubated. Patient also has underlying dementia as he is currently on Namenda. (3) Atrial fibrillation Qualifiers: Atrial fibrillation type: unspecified Qualified Code(s): I48.91 - Unspecified atrial fibrillation Is this a current diagnosis for this admission?: Yes Plan: TU current management with metoprolol. Patient was started on low-dose Eliquis by track subway repair supervisor as he has a high chads score. Patient may not be a good candidate for anticoagulation due to his history of falls. (4) CAD (coronary artery disease) Qualifiers: Coronary Disease-Associated Artery/Lesion type: [place] artery [place] vs. transplanted heart: [place] heart Associated angina: angina presence unspecified Qualified Code(s): I25.10 - Atherosclerotic heart disease of [place] coronary artery without angina pectoris Is this a current diagnosis for this admission?: Yes Plan: Continue aspirin and atorvastatin and beta-gonzalez. (5) COPD (chronic obstructive pulmonary disease) Is this a current diagnosis for this admission?: Yes Plan: Patient with CO2 retention. Continue with nebs. As needed ABGs. (6) Diabetes Qualifiers: Diabetes mellitus type: type 2 Diabetes mellitus complication status: with unspecified complications Diabetes mellitus usp insulin use: without termite control representative use Qualified Code(s): E11.8 - Type 2 diabetes mellitus with unspecified complications Is this a current diagnosis for this admission?: Yes Plan: Katelyn sliding scale insulin. (7) Falls Qualifiers: Encounter type: subsequent encounter Qualified Code(s): W19.XXXD - Unspecified fall, subsequent encounter Is this a current diagnosis for this admission?: Yes Plan: Precautions. PT OT consulted. Plan for rehab. (8) Hypomagnesemia Is this a current diagnosis for this admission?: Yes Plan: Replace and monitor. No (9) Unsteady gait Is this a current diagnosis for this admission?: Yes Plan: Fall precautions in place. PT OT consulted. Plans for rehab. - Time Time Spent with patient: Less than 15 minutes Anticipated discharge: Home Within: when bed available - Inpatient Certification Based on my medical assessment, after consideration of the patient's comorbidities, presenting symptoms, or acuity I expect that the services needed warrant INPATIENT care.: - Plan ICU Medical Necessity: Significant Comorbidiites Make Outpatient Treatment Too Risky , Need Close Monitoring Due to Risk of Patient Decompensation
[2018-01-07] MEDS: PANTOPRAZOLE SODIUM 40 MG VIAL IV SCH (12:20)
--- NOTE | 2018-01-07 12:28 | PDOC PROGRESS REPORT ---
Subjective Progress Note for:: 01/07/18 Subjective:: She is unresponsive today. Patient requiring 100% FiO2 on the BiPAP to maintain his saturations. She is hypotensive. Patient given 500 cc normal saline bolus followed by another 500 cc normal saline bolus. Patient currently on continuous fluids. Patient still unresponsive. Patient noted to have a left -sided pleural effusion. Did discuss with patient family about his status. Daughter states that she wants him to be comfortable. Reason For Visit: ACUTE/CHRONIC CHF, HYPOMAGNESEMIA Physical Exam Vital Signs: Temp Pulse Resp BP Pulse Ox 98.5 F 81 20 114/90 H 97 01/07/18 04:00 01/07/18 04:00 01/07/18 11:23 01/07/18 04:00 01/07/18 11:23 Intake & Output 01/06/18 01/07/18 01/08/18 06:59 06:59 06:59 Intake Total 962 577 Output Total 2650 1250 Balance -1688 -673 Weight 65.3 kg 66.4 kg General appearance: PRESENT: no acute distress, thin Head exam: PRESENT: normocephalic Eye exam: PRESENT: EOMI. ABSENT: scleral icterus Ear exam: PRESENT: normal external ear exam Mouth exam: PRESENT: moist Neck exam: ABSENT: carotid bruit, JVD, lymphadenopathy, thyromegaly Respiratory exam: PRESENT: other - Diminished breath sounds. BiPAP in place.. ABSENT: rales, rhonchi, wheezes Cardiovascular exam: PRESENT: RRR. ABSENT: diastolic murmur, rubs, systolic murmur GI/Abdominal exam: PRESENT: normal bowel sounds, soft. ABSENT: distended, guarding, mass, organolmegaly, rebound, tenderness Rectal exam: PRESENT: deferred Gentrourinary exam: PRESENT: indwelling catheter Extremities exam: PRESENT: full ROM. ABSENT: calf tenderness, clubbing, pedal edema Neurological exam: PRESENT: other - Unresponsive. ABSENT: motor sensory deficit Psychiatric exam: ABSENT: homicidal ideation, suicidal ideation Skin exam: PRESENT: dry, intact, warm. ABSENT: cyanosis, rash Results Laboratory Results: 01/07/18 04:12 01/07/18 04:12 01/07/18 01/07/18 01/07/18 04:12 04:12 04:49 WBC 8.1 RBC 6.30 H Hgb 13.9 Hct 46.2 MCV 73 L MCH 22.1 L MCHC 30.2 L RDW 27.4 H Plt Count 132 L Seg Neutrophils % Not Reportable Lymphocytes % Not Reportable Monocytes % Not Reportable Eosinophils % Not Reportable Basophils % Not Reportable Absolute Neutrophils Not Reportable Absolute Lymphocytes Not Reportable Absolute Monocytes Not Reportable Absolute Eosinophils Not Reportable Absolute Basophils Not Reportable Carbonic Acid 2.70 H HCO3/H2CO3 Ratio 17:1 ABG pH 7.34 L ABG pCO2 89.8 H* ABG pO2 72.2 L ABG HCO3 47.1 H ABG O2 Saturation 92.5 L ABG Base Excess 16.5 FiO2 100% Sodium 143.2 Potassium 4.0 Chloride 83 L Carbon Dioxide 48 H* Anion Gap 12 BUN 30 H Creatinine 1.34 H Est GFR ( Amer) > 60 Est GFR (Non-Af Amer) 51 L Glucose 90 Calcium 8.7 Magnesium 1.4 L Total Protein 01/07/18 07:45 WBC RBC Hgb Hct MCV MCH MCHC RDW Plt Count Seg Neutrophils % Lymphocytes % Monocytes % Eosinophils % Basophils % Absolute Neutrophils Absolute Lymphocytes Absolute Monocytes Absolute Eosinophils Absolute Basophils Carbonic Acid HCO3/H2CO3 Ratio ABG pH ABG pCO2 ABG pO2 ABG HCO3 ABG O2 Saturation ABG Base Excess FiO2 Sodium Potassium Chloride Carbon Dioxide Anion Gap BUN Creatinine Est GFR ( Amer) Est GFR (Non-Af Amer) Glucose Calcium Magnesium Total Protein 5.9 L 12/30/17 12/31/17 12/31/17 19:25 01:23 07:20 Troponin I 0.048 0.057 0.063 NT-Pro-B Natriuret Pep 01/03/18 01/05/18 01/07/18 03:49 11:19 04:12 Troponin I 0.083 0.078 NT-Pro-B Natriuret Pep 01326 H 8100 H 01/07/18 07:45 Troponin I NT-Pro-B Natriuret Pep 65648 H Impressions: Chest CT 12/30/17 16:49 IMPRESSION: Bilateral pleural effusions -moderate on the right and small on the left. . Bronchiectatic change anteriorly right lung. Cardiomegaly. Mild aneurysmal change ascending aorta. Head CT 12/30/17 16:49 IMPRESSION: No acute intracranial pathology. Possible focal soft tissue swelling left parietal region. EVIDENCE OF ACUTE STROKE: NO. Chest X-Ray 01/07/18 00:00 IMPRESSION: 1. Interval development of moderate left and small right pleural effusion with bibasilar opacities which could represent consolidation or atelectasis. 2. Cardiomegaly. Assessment & Plan - Diagnosis (1) Altered mental status Qualifiers: Altered mental status type: stupor Qualified Code(s): R40.1 - Stupor Is this a current diagnosis for this admission?: Yes Plan: Most likely due to CO2 retention. Patient not improving. Patient became more altered this morning. Patient CO2 in the 80s. Daughter has requested comfort measures. BiPAP is being discontinued. Patient being placed on nasal cannula. Palliative care consulted. (2) Acute on chronic congestive heart failure Qualifiers: Heart failure type: combined systolic and diastolic Qualified Code(s): I50.43 - Acute on chronic combined systolic (congestive) and diastolic ( congestive) heart failure Is this a current diagnosis for this admission?: Yes Plan: Patient with a EF of 30-45% with grade 2 diastolic dysfunction. Patient appears euvolemic at this time however he does have a left-sided pleural effusion. Patient does not want it drained. (3) Atrial fibrillation Qualifiers: Atrial fibrillation type: unspecified Qualified Code(s): I48.91 - Unspecified atrial fibrillation Is this a current diagnosis for this admission?: Yes Plan: Patient is comfort measures only. Patien tis unresponsive therefore he is not being given any medications. (4) CAD (coronary artery disease) Qualifiers: Coronary Disease-Associated Artery/Lesion type: [place] artery [place] vs. transplanted heart: [place] heart Associated angina: angina presence unspecified Qualified Code(s): I25.10 - Atherosclerotic heart disease of [place] coronary artery without angina pectoris Is this a current diagnosis for this admission?: Yes Plan: Patient is unresponsive and not taking any medications at this time. Patient is comfort measures only. (5) COPD (chronic obstructive pulmonary disease) Is this a current diagnosis for this admission?: Yes Plan: Patient continues to have CO2 retention. Patient mentation is worse. Patient currently unresponsive. BiPAP is being adjusted however patient not responding. Patient family has decided on comfort measures. Palliative care consulted. (6) Diabetes Qualifiers: Diabetes mellitus type: type 2 Diabetes mellitus complication status: with unspecified complications Diabetes mellitus medical terminologist insulin use: without intermediate use Qualified Code(s): E11.8 - Type 2 diabetes mellitus with unspecified complications Is this a current diagnosis for this admission?: Yes Plan: Will discontinue sliding scale insulin and glucose checks. Patient is comfort measures only. (7) Falls Qualifiers: Encounter type: subsequent encounter Qualified Code(s): W19.XXXD - Unspecified fall, subsequent encounter Is this a current diagnosis for this admission?: Yes Plan: Patient currently comfort measures only. Patient is not suitable for discharge to rehab. (8) Hypomagnesemia Is this a current diagnosis for this admission?: Yes Plan: Replaced. (9) Unsteady gait Is this a current diagnosis for this admission?: Yes Plan: Plan is for rehab at this time. Patient was made comfort measures. - Time Time Spent with patient: 15-24 minutes Anticipated discharge: Hospice
[2018-01-07] MEDS ORDERED: MIDAZOLAM 2 MG/2 ML INJ IV PRN (12:36)
[2018-01-07] MEDS ORDERED: FENTANYL CITRATE INJ/PF 100 MCG/2 ML AMPUL IV PRN ×2 (12:36→23:54)
--- NOTE | 2018-01-07 19:54 | PDOC PROGRESS REPORT ---
Subjective Progress Note for:: 01/07/18 Subjective:: Today on rounds patient noted to be lethargic and wearing bilevel therapy. Very lethargic, difficult to arouse. Patient is maintaining sinus rhythm. Frequent APCs noted and VPCs noted Review of systems: Rest review of systems negative. Medications: Medications have been reviewed. Reason For Visit: ACUTE/CHRONIC CHF, HYPOMAGNESEMIA Physical Exam Vital Signs: Temp Pulse Resp BP Pulse Ox 98.5 F 81 23 H 114/90 H 93 01/07/18 04:00 01/07/18 04:00 01/07/18 08:00 01/07/18 04:00 01/07/18 08:00 Intake & Output 01/06/18 01/07/18 01/08/18 06:59 06:59 06:59 Intake Total 962 577 Output Total 2650 1250 Balance -7428 -673 Weight 65.3 kg 66.4 kg Exam: GENERAL: Well-nourished but seems in mild respiratory distress wearing bilevel therapy. Patient is very lethargic and difficult to arouse, not oriented to place time or person. HEAD: Atraumatic, normocephalic. EYES: Pupils equal round and reactive to light, extraocular movements intact, sclera anicteric, conjunctiva are normal. ENT: TMs normal, nares patent, oropharynx clear without exudates. Moist mucous membranes. No oral ulcerations or bleeding gums noted NECK: supple without lymphadenopathy or JVD. Trachea is central. No cervical or axillary lymphadenopathy noted. Carotids are 2+ LUNGS: Breath sounds bibasilar fine crackles at bases. No significant dullness noted. Dullness noted left base. Scattered crackles noted. Scattered wheezing noted. CHEST: Palpation of chest wall shows no significant chest wall tenderness. HEART: [place] [employer], No PSH, 2/6 CHUCK aortic area, 1/6 farmer systolic murmur mitral area, rubs or gallops. ABDOMEN: Soft, no significant tenderness appreciated, normoactive bowel sounds. No guarding, no rebound. No rigidity noted . No masses appreciated. EXTREMITIES: Pedal pulses are 1-2+, no calf tenderness noted, 1-2 + pedal edema noted. No clubbing or cyanosis. NEUROLOGICAL: Patient is very lethargic is not able to participate in neurological exam because of patient's current mental status PSYCH: Patient cannot participate in a neurologic and psych exam because of the patient's current mental status SKIN: No significant ecchymosis, rash, ulcerations or signs of pruritus noted. MUSCULOSKELETAL EXAM: No significant joint swelling noted. Results Laboratory Results: 01/07/18 04:12 01/07/18 04:12 01/07/18 01/07/18 01/07/18 04:12 04:12 04:49 WBC 8.1 RBC 6.30 H Hgb 13.9 Hct 46.2 MCV 73 L MCH 22.1 L MCHC 30.2 L RDW 27.4 H Plt Count 132 L Seg Neutrophils % Not Reportable Lymphocytes % Not Reportable Monocytes % Not Reportable Eosinophils % Not Reportable Basophils % Not Reportable Absolute Neutrophils Not Reportable Absolute Lymphocytes Not Reportable Absolute Monocytes Not Reportable Absolute Eosinophils Not Reportable Absolute Basophils Not Reportable Carbonic Acid 2.70 H HCO3/H2CO3 Ratio 17:1 ABG pH 7.34 L ABG pCO2 89.8 H* ABG pO2 72.2 L ABG HCO3 47.1 H ABG O2 Saturation 92.5 L ABG Base Excess 16.5 FiO2 100% Sodium 143.2 Potassium 4.0 Chloride 83 L Carbon Dioxide 48 H* Anion Gap 12 BUN 30 H Creatinine 1.34 H Est GFR ( Amer) > 60 Est GFR (Non-Af Amer) 51 L Glucose 90 Calcium 8.7 Magnesium 1.4 L Total Protein 01/07/18 07:45 WBC RBC Hgb Hct MCV MCH MCHC RDW Plt Count Seg Neutrophils % Lymphocytes % Monocytes % Eosinophils % Basophils % Absolute Neutrophils Absolute Lymphocytes Absolute Monocytes Absolute Eosinophils Absolute Basophils Carbonic Acid HCO3/H2CO3 Ratio ABG pH ABG pCO2 ABG pO2 ABG HCO3 ABG O2 Saturation ABG Base Excess FiO2 Sodium Potassium Chloride Carbon Dioxide Anion Gap BUN Creatinine Est GFR ( Amer) Est GFR (Non-Af Amer) Glucose Calcium Magnesium Total Protein 5.9 L 12/30/17 12/31/17 12/31/17 19:25 01:23 07:20 Troponin I 0.048 0.057 0.063 NT-Pro-B Natriuret Pep 01/03/18 01/05/18 01/07/18 03:49 11:19 04:12 Troponin I 0.083 0.078 NT-Pro-B Natriuret Pep 97765 H 8100 H 01/07/18 07:45 Troponin I NT-Pro-B Natriuret Pep 86132 H EKG Comments: Telemetry strips shows probable sinus rhythm with APCs and VPCs. Impressions: Chest CT 12/30/17 16:49 IMPRESSION: Bilateral pleural effusions -moderate on the right and small on the left. . Bronchiectatic change anteriorly right lung. Cardiomegaly. Mild aneurysmal change ascending aorta. Head CT 12/30/17 16:49 IMPRESSION: No acute intracranial pathology. Possible focal soft tissue swelling left parietal region. EVIDENCE OF ACUTE STROKE: NO. Chest X-Ray 01/07/18 00:00 IMPRESSION: 1. Interval development of moderate left and small right pleural effusion with bibasilar opacities which could represent consolidation or atelectasis. 2. Cardiomegaly. Assessment & Plan - Diagnosis (1) Acute on chronic congestive heart failure Qualifiers: Heart failure type: combined systolic and diastolic Qualified Code(s): I50.43 - Acute on chronic combined systolic (congestive) and diastolic ( congestive) heart failure Is this a current diagnosis for this admission?: Yes (2) Atrial fibrillation Qualifiers: Atrial fibrillation type: unspecified Qualified Code(s): I48.91 - Unspecified atrial fibrillation Is this a current diagnosis for this admission?: Yes (3) CAD (coronary artery disease) Qualifiers: Coronary Disease-Associated Artery/Lesion type: [place] artery [place] vs. transplanted heart: [place] heart Associated angina: angina presence unspecified Qualified Code(s): I25.10 - Atherosclerotic heart disease of [place] coronary artery without angina pectoris Is this a current diagnosis for this admission?: Yes (4) CHF (congestive heart failure) Qualifiers: Heart failure type: unspecified Heart failure chronicity: unspecified Qualified Code(s): I50.9 - Heart failure, unspecified Is this a current diagnosis for this admission?: Yes (5) Diabetes Qualifiers: Diabetes mellitus type: type 2 Diabetes mellitus complication status: with unspecified complications Diabetes mellitus jail insulin use: without accounting administrator use Qualified Code(s): E11.8 - Type 2 diabetes mellitus with unspecified complications Is this a current diagnosis for this admission?: Yes (6) Falls Qualifiers: Encounter type: subsequent encounter Qualified Code(s): W19.XXXD - Unspecified fall, subsequent encounter Is this a current diagnosis for this admission?: Yes (7) Hypomagnesemia Is this a current diagnosis for this admission?: Yes (9) Unsteady gait Is this a current diagnosis for this admission?: Yes (10) COPD (chronic obstructive pulmonary disease) Qualifiers: COPD type: COPD with acute exacerbation Qualified Code(s): J44.1 - Chronic obstructive pulmonary disease with (acute) exacerbation Is this a current diagnosis for this admission?: Yes (11) Respiratory failure Qualifiers: Chronicity: acute on chronic Respiratory failure complication: hypoxia and hypercapnia Qualified Code(s): J96.21 - Acute and chronic respiratory failure with hypoxia; J96.22 - Acute and chronic respiratory failure with hypercapnia; J96.22 - Acute and chronic respiratory failure with hypercapnia; J96.22 - Acute and chronic respiratory failure with hypercapnia Is this a current diagnosis for this admission?: Yes - Notes Notes: CXR shows bilat effusion, L>R Lasix 40mg po iv started. Condition has deteriorated. Seems to have now worse CHF based on BNP level and chest x-ray finding. Possible increasing CO2 retention. Continue bilevel therapy. Continue Diamox, increased IV Lasix dose. Overall prognosis is guarded. Family conference ongoing. COPD: Patient noted to have acute exacerbation with significant retention of CO2 and hypoxemia. Patient now noted to be DNR. He has a living will. Currently on bilevel therapy overnight. Family conference to occur later. Patient seems to have underlying severe COPD. Continue bronchodilator, antibiotic and steroid treatment as needed. Respiratory failure acute on chronic: Patient noted to have chronic COPD. Chest x-ray reviewed showed cardiomegaly. There is elevated right hemidiaphragm. Bilateral pleural effusion noted. This is on chest x-ray review. Acute on chronic congestive heart failure: Continue diuretic therapy. 2D echo shows combined systolic and diastolic as well as biventricular heart failure acute on chronic. Continue current therapeutic regimen. Atrial fibrillation: Recommend chronic anticoagulation given high chads score. Patient does have history of fall, patient will also benefit from physical therapy assessment and advice regarding prevention of fall by physical therapist. Continue patient on chronic anticoagulation. Coronary artery disease: Patient status post coronary artery bypass graft surgery. At this time in the absence of chest pain and other significant comorbid diagnosis and also underlying dementia, do not feel patient would be a candidate for invasive workup in the absence of significant anginal symptoms. Diabetes: Recommend good control of diabetes but avoid any hyper or hypoglycemia. History of fall: Recommend physical therapy. Pitting edema: Part of CHF. Patient could have associated venous insufficiency. Recommend support stockings and keeping legs elevated when feasible. - Time Time with patient: Greater than 35 minutes - CODE STATUS : was discussed, patient remains DO NOT RESUSCITATE. Surrogate decision-maker unchanged. Multiple medical problems were addressed. More than 50% of the time spent coordinating care, discussing management plans with involved caregivers. Management plans discussed with involved personnels. Medical decision making was of moderate to high complexity, patient's has multiple comorbidities. Medications reviewed and adjusted accordingly: Yes
[2018-01-07] MEDS ORDERED: FUROSEMIDE INJ/PF 40 MG/4 ML SDV IV SCH (22:00)
[2018-01-07 22:09] VITALS: BP 92/49
[2018-01-07] MEDS ORDERED: FUROSEMIDE INJ/PF 40 MG/4 ML SDV IV PRN (23:45)
[2018-01-08] MEDS: LORAZEPAM INJ 2 MG/1 ML VIAL IV PRN ×3 (00:08→03:56)
[2018-01-08] MEDS: FENTANYL CITRATE INJ/PF 100 MCG/2 ML AMPUL IV PRN ×2 (00:48→05:17)
--- NOTE | 2018-01-08 08:31 | Death Summary ---
Summary Date : 01/08/18 Time of :: 06:05 Resuscitation Status: Comfort Measures Only Primary Care Provider: ARACELY GARZA NP - Final Diagnosis (1) Acute on chronic congestive heart failure Is this a current diagnosis for this admission?: Yes (2) Altered mental status Is this a current diagnosis for this admission?: Yes (3) Atrial fibrillation Is this a current diagnosis for this admission?: Yes (4) CAD (coronary artery disease) Is this a current diagnosis for this admission?: Yes (5) COPD (chronic obstructive pulmonary disease) Is this a current diagnosis for this admission?: Yes (6) Diabetes Is this a current diagnosis for this admission?: Yes (7) Falls Is this a current diagnosis for this admission?: Yes (8) Hypomagnesemia Is this a current diagnosis for this admission?: Yes (9) Unsteady gait Is this a current diagnosis for this admission?: Yes Hospital Course:: Patient is a 2-year-old male who presented with shortness of breath over the last 2 weeks on 12/30/2017. It was getting gradually worse. Patient is a chronic smoker not on O2. Patient had a history of CHF. Patient was having some edema and prostate problems with increasing falls. Patient also had underlying dementia. Patient also had atrial fibrillation. Patient was started on treatment for his conditions. Patient seemed to be showing some improvement. Patient however did develop some confusion from CO2 retention. Patient also developed respiratory distress as patient was a DO NOT RESUSCITATE family did not want him intubated. Patient was placed on BiPAP. Patient showing some improvement. Patient did develop some worsening symptoms of hypoxia. Patient was noted to have a moderate sized left pleural effusion and was requiring 100% FiO2. Family decided that they did not want the fluid removed. They stated that they want the patient made comfortable as he did not want all this done. Patient was made comfort measures only. Patient BiPAP was discontinued. Patient placed on supplemental oxygen patient patient was started on Versed, fentanyl and Ativan. Patient on 01/08/2018 at 6:05 AM.
[2018-01-08] MEDS ORDERED: METOPROLOL TARTRATE 25 MG TABLET PO SCH (10:00)
== END 2018-01-08 06:05 | DRG 291 ==
LOC: ER 15:09 → EH 17:41 → 3N 22:07
PROVIDERS: ADMIT Emergency Medicine; ATTEND Emergency Medicine
DX: I50.43 Acute on chronic combined systolic (congestive) and diastolic (congestive) heart failure (principal); J96.21 Acute and chronic respiratory failure with hypoxia; J96.22 Acute and chronic respiratory failure with hypercapnia; J44.1 Chronic obstructive pulmonary disease with (acute) exacerbation; Z66 Do not resuscitate; E83.42 Hypomagnesemia; R40.1 Stupor; E11.9 Type 2 diabetes mellitus without complications; I48.91 Unspecified atrial fibrillation; R26.81 Unsteadiness on feet; I25.10 Atherosclerotic heart disease of native coronary artery without angina pectoris; N40.1 Benign prostatic hyperplasia with lower urinary tract symptoms; R35.1 Nocturia; R39.15 Urgency of urination; F17.210 Nicotine dependence, cigarettes, uncomplicated; Z79.84 Long term (current) use of oral hypoglycemic drugs; Z79.51 Long term (current) use of inhaled steroids; Z79.899 Other long term (current) drug therapy
CPT/HCPCS: 36415; 36600; 70450; 71045; 71250; 80048; 80053; 80061; 81001; 82803; 82962; 83036; 83615; 83735; 83880; 84155; 84443; 84481; 84484; 85025; 85027; 85610; 85730; 93005; 93010; 93306; 94660; 99285; G8978-GP; G8979-GP; J1650; J1815; J1940; J2060; J3010; J3475; J3490; J7030; S0164